=== PATIENT | female | born 1960 | race African-American/Black ===

== ENCOUNTER 2019-01-03 10:10 | Emergency (ER) | payer MEDICAID ==
[~2019-01-03] VITALS: Ht 162.6 cm; Wt 72.6 kg
[2019-01-03] MEDS ORDERED: METHADONE HCL10 MG ORAL (10:29)
[2019-01-03 10:41] VITALS: BP 149/80
--- NOTE | 2019-01-03 10:59 | Emergency Room Report ---
History of Present Illness General Chief Complaint: Upper Extremity Injury Source: Patient Present Illness HPI Patient presents with complaints of discomfort to the lateral part of the right hand reports that last week while she was changing the bed as she would change the sheets and making a motion of spreading the bedsheet as she moves her right hand upward she hit something on the right side of her hand She has had some ongoing swelling and discomfort with touch and as it persisted presents to the ER denies any wrist pain denies any elbow pain the discomfort is 3 out of 10 worse with touch or movement Allergies: Coded Allergies: No Known Allergies (Unverified , 01/03/19) Patient History Past Medical History: see triage record Last Menstrual Period: menopause Reviewed Nursing Documentation: PMH: Agreed; PSxH: Agreed Nursing Documentation-PMH Past Medical History: No Stated History Review of Systems All Other Systems: negative except mentioned in HPI Physical Exam Vital Signs Date Time Temp Pulse Resp B/P (MAP) Pulse Ox O2 Delivery O2 Flow Rate FiO2 01/03/19 10:27 98.1 76 19 149/80 (103) 99 Room Air Sp02 EP Interpretation: reviewed, normal General Appearance: well appearing, no apparent distress Head: normocephalic, atraumatic Eyes: bilateral eye PERRL, bilateral eye EOMI ENT: hearing grossly normal Neck: supple Respiratory: no respiratory distress, no retraction, no accessory muscle use Musculoskeletal: swelling - And mild ecchymosis to the lateral aspect of the right hand, digits are otherwise fully mobile wrist is nontender Neurologic: alert, oriented Skin: other - As above Lymphatic: no adenopathy Procedures Splinting Splinting : Consent: Verbal Location: Right hand Pre-Made Type: Splint: volar Pre-Proc Neuro Vasc Exam: normal Post-Proc Neuro Vasc Exam: normal Patient Tolerated: Well Complications: None Medical Decision Making Diagnostic Impression: Primary Impression: Hand fracture, right ER Course Given the history and presentation imaging studies are initiated there is evidence of fifth metacarpal fracture This did happen about 7 days ago nevertheless patient has splint applied is provided with outpatient follow-up and Will return with any changes or concerns Other X-Ray Diagnostic Results Other X-Ray Diagnostic Results : X-Ray ordered: right hand # of Views/Limited Vs Complete: 3 View Indication: Pain EP Interpretation: Yes Interpretation: no soft tissue swelling, other - Fifth metacarpal fracture mild angulation Impression: Other - Acute fracture as above Electronically Signed by: Cuong Draper DO Last Vital Signs Date Time Temp Pulse Resp B/P (MAP) Pulse Ox O2 Delivery O2 Flow Rate FiO2 01/03/19 10:41 98.1 72 19 149/80 99 Room Air Status: improved Disposition: HOME, SELF-CARE Condition: Improved Scripts Ibuprofen* (MOTRIN*) 600 Mg Tablet 600 MG ORAL Q8H PRN for For Pain, #20 TAB 0 Refills Prov: Cuong Draper DO 01/03/19 Referrals: NOT CHOSEN IPA/MD,REFERRING (PCP) Additional Instructions: Patient is provided with the discharge instructions notified to follow up with primary doctor in the next 2-3 days otherwise return to the er with any worsening symptoms. Please note that this report is being documented using [employer] technology. This can lead to erroneous entry secondary to incorrect interpretation by the dictating instrument. Cuong Draper DO Jan 03, 2019 10:59
[2019-01-03] MEDS ORDERED: IBUPROFEN600 MG ORAL (12:18)
[2019-01-03 12:50] VITALS: BP 149/80
--- NOTE | 2019-01-03 13:23 | Diagnostic Imaging Report ---
Indication: Trauma, pain Technique: 3 views right hand Comparison: none Findings: There is a very slightly angulated slightly impacted fracture of the neck of the fifth metacarpal. The bones are osteoporotic chronic. No other acute fractures. No dislocations. There is degenerative narrowing of the second through fifth proximal and distal interphalangeal joints. There is hardware seen reducing old healed distal ulnar fracture, and bone bridging the distal radius and the ulna. Impression: Positive for fifth metacarpal fracture Other findings as noted This agrees with the preliminary interpretation reported by the emergency room physician in the electronic medical record
== END 2019-01-03 12:51 | disposition home or self-care (01) ==
LOC: EMR 10:48
DX: S62.306A Unspecified fracture of fifth metacarpal bone, right hand, initial encounter for closed fracture (principal); W22.8XXA Striking against or struck by other objects, initial encounter; Y92.9 Unspecified place or not applicable
CPT/HCPCS: 29125; 73130; Z7502; 99283

== ENCOUNTER 2019-08-11 12:34 | Inpatient (IN) | payer MEDICAID ==
[~2019-08-11] VITALS: Ht 162.6 cm; Wt 74.8 kg
[~2019-08-11 12:34] MED LIST: IBUPROFEN600 MG ORAL; METHADONE HCL10 MG ORAL
--- NOTE | 2019-08-11 12:52 | Emergency Room Report ---
History of Present Illness General Chief Complaint: Chest pain Source: Patient Present Illness HPI Disclaimer: Please note that this report is being documented using [employer] technology. This can lead to erroneous entry secondary to incorrect interpretation by the dictating instrument. HPI: 59-year-old female presenting for chest pain. Patient states she developed sudden onset of right sided cramping tightness over the right breast and sternum that somewhat radiates down the right arm. Onset was 45 minutes ago while the patient was at rest. Denies prior episodes of similar chest pain. Denies prior trauma or injury. She is a former smoker and had quit for several years however last night bought a pack of cigarettes and was smoking last night and today causing her to cough a little. No prior cough, fever, sore throat, URI symptoms. She denies diaphoresis, palpitations, pain in the neck or back. Prior history of hypercholesterolemia however no longer taking medications as she states her triglyceride levels normalized. Did not take any medication prior to arrival. PMH: Asthma, bronchitis PSH: Reviewed Allergies: Denied Social Hx: Former smoker, recent use Allergies: Coded Allergies: No Known Allergies (Unverified , 01/03/19) Review of Systems All Other Systems: negative except mentioned in HPI Physical Exam General: Awake and alert, no acute distress HEENT: NC/AT. EOMI. Chest wall: Reproducible tenderness over the right chest wall and sternum. No crepitus or deformity Cardiovascular: RRR. S1 and S2 normal. No murmur appreciated Resp: Normal work of breathing. No cough, wheezing or crackles appreciated Abdomen: Abdomen is soft, nondistended. Nontender Skin: Intact. No abrasions, laceration or rash over the exposed skin MSK: Normal tone and bulk. Moving all extremities. No obvious deformity. Neuro: Awake and alert. Mentating appropriately. Medical Decision Making ER Course This is a 59-year-old female presenting with sudden onset chest pain 45 minutes ago. Differential includes was not limited to ACS, angina, NH, arrhythmia, bronchospasm, esophageal spasm, asthma exacerbation, pneumonia, musculoskeletal chest pain, GERD, dissection. EKG on arrival shows sinus rhythm with nonspecific T wave changes but no ST segment elevation or depression. Labs thus far within normal limits including the first troponin. The patient is continuing persistent chest pain that is now radiating to her back. Will clinically have low suspicion for dissection will obtain a CTA of the chest. This study will be signed out to the oncoming physician. Will plan for admission for chest pain. Laboratory Tests Test 08/11/19 12:50 08/11/19 19:50 08/12/19 06:02 08/13/19 05:10 White Blood Count 5.2 K/UL (4.8-10.8) 5.2 K/UL (4.8-10.8) Red Blood Count 4.20 M/UL (4.20-5.40) 3.77 M/UL (4.20-5.40) L Hemoglobin 12.4 G/DL (12.0-16.0) 11.1 G/DL (12.0-16.0) L Hematocrit 38.8 % (37.0-47.0) 34.7 % (37.0-47.0) L Mean Corpuscular Volume 92 FL (80-99) 92 FL (80-99) Mean Corpuscular Hemoglobin 29.6 PG (27.0-31.0) 29.5 PG (27.0-31.0) Mean Corpuscular Hemoglobin Concent 32.0 G/DL (32.0-36.0) 32.0 G/DL (32.0-36.0) Red Cell Distribution Width 14.2 % (11.6-14.8) 14.3 % (11.6-14.8) Platelet Count 224 K/UL (150-450) 191 K/UL (150-450) Mean Platelet Volume 7.2 FL (6.5-10.1) 7.2 FL (6.5-10.1) Neutrophils (%) (Auto) 34.4 % (45.0-75.0) L 36.9 % (45.0-75.0) L Lymphocytes (%) (Auto) 44.9 % (20.0-45.0) 43.5 % (20.0-45.0) Monocytes (%) (Auto) 11.1 % (1.0-10.0) H 12.3 % (1.0-10.0) H Eosinophils (%) (Auto) 7.7 % (0.0-3.0) H 5.8 % (0.0-3.0) H Basophils (%) (Auto) 2.0 % (0.0-2.0) 1.5 % (0.0-2.0) Prothrombin Time 10.4 SEC (9.30-11.50) Prothrombin Time INR 0.9 (0.9-1.1) Activated Partial Thromboplast Time 28 SEC (23-33) Sodium Level 146 MMOL/L (136-145) H 133 MMOL/L (136-145) #L Pending Potassium Level 3.8 MMOL/L (3.5-5.1) 3.5 MMOL/L (3.5-5.1) Pending Chloride Level 108 MMOL/L (98-107) H 107 MMOL/L (98-107) Pending Carbon Dioxide Level 28 MMOL/L (21-32) 26 MMOL/L (21-32) Pending Anion Gap 10 mmol/L (5-15) 0 mmol/L (5-15) L Blood Urea Nitrogen 15 mg/dL (7-18) 17 mg/dL (7-18) Pending Creatinine 0.9 MG/DL (0.55-1.30) 1.0 MG/DL (0.55-1.30) Pending Estimated Glomerular Filtration Rate > 60 mL/min (>60) > 60 mL/min (>60) Pending Glucose Level 62 MG/DL (74-106) L 107 MG/DL (74-106) H Pending Calcium Level 8.7 MG/DL (8.5-10.1) 8.3 MG/DL (8.5-10.1) L Pending Total Bilirubin 0.3 MG/DL (0.2-1.0) 0.2 MG/DL (0.2-1.0) Aspartate Amino Transferase (AST) 23 U/L (15-37) 23 U/L (15-37) Alanine Aminotransferase (ALT) 25 U/L (12-78) 22 U/L (12-78) Alkaline Phosphatase 74 U/L (46-116) 72 U/L (46-116) Troponin I 0.000 ng/mL (0.000-0.056) 0.000 ng/mL (0.000-0.056) 0.000 ng/mL (0.000-0.056) Pending Pro-B-Type Natriuretic Peptide 85 pg/mL (0-125) 72 pg/mL (0-125) Total Protein 7.6 G/DL (6.4-8.2) 6.9 G/DL (6.4-8.2) Albumin 4.0 G/DL (3.4-5.0) 3.9 G/DL (3.4-5.0) Globulin 3.6 g/dL Albumin/Globulin Ratio 1.1 (1.0-2.7) Direct Bilirubin < 0.1 MG/DL (0.0-0.3) Total Creatine Kinase 268 U/L (26-308) Hemoglobin A1c 6.0 % (4.3-6.0) Magnesium Level 2.0 MG/DL (1.8-2.4) Pending Triglycerides Level 255 MG/DL (30-150) H Cholesterol Level 229 MG/DL (< 200) H LDL Cholesterol 123 mg/dL (<100) H HDL Cholesterol 47 MG/DL (40-60) Cholesterol/HDL Ratio 4.9 (3.3-4.4) H Thyroid Stimulating Hormone (TSH) 1.179 uiU/mL (0.358-3.740) Phosphorus Level Pending EKG Diagnostic Results EKG Time: 12:48 Rate: normal Rhythm: NSR ST Segments: no acute changes Other Impression Sinus rhythm, normal axis, normal intervals, nonspecific ST changes. ASA given to the pt in ED: Yes Rhythm Strip Diag. Results Rhythm Strip Time: 12:48 EP Interpretation: yes Rate: 78 Rhythm: NSR, no PVC's, no ectopy Chest X-Ray Diagnostic Results Chest X-Ray Diagnostic Results : Chest X-Ray Ordered: Yes # of Views/Limited/Complete: 1 View Indication: Chest Pain EP Interpretation: Yes Interpretation: no consolidation, no effusion, no pneumothorax Impression: No acute disease Electronically Signed by: Electronically signed by Dr. Raffaele Lundberg CT/MRI/US Diagnostic Results CT/MRI/US Diagnostic Results : Impression CTA Impression: No evidence of acute pulmonary embolus or other acute thoracic vascular pathology Borderline cardiomegaly Nonspecific focal subpleural groundglass opacity in left inferior lingula, probably an area of atelectasis. Dictated By: Slava Stewart MD Electronically Signed By: Slava Stewart MD Signed Date/Time 08/11/19 9730 Disposition: ADMITTED INPATIENT Condition: Stable Raffaele Lundberg MD Aug 11, 2019 12:52
--- NOTE | 2019-08-11 12:59 | NUR ---
ED Nurse Note: Patient walked in from home complaining of right sided chest pain 10/10 started x1 hr ago. Patient aox4, states she smoked cigarette before the pain started. Denies injury. Patient is on room air, saturating 98%. S
[2019-08-11] MEDS ORDERED: Aspirin Baby 81mg ORAL ONE (13:00)
--- NOTE | 2019-08-11 13:01 | NUR ---
ED Nurse Note: Patient states she has history of bronchitis. Placed patient on hospital gown and cont. desk monitor. IV established on left AC 20g, blood collected and sent to lab. ERMD was at bedside, assessed patient. EKG done.
[2019-08-11 13:03] VITALS: BP 122/97
--- NOTE | 2019-08-11 13:07 | NUR ---
ED Nurse Note: xray at bedside
--- NOTE | 2019-08-11 13:08 | NUR ---
ED Nurse Note: Patient denies n/v/diarrhea/fever/chills, no SOB at this time. Safety precautions in place, bed is locked and side rails up x2. All needs attended to, instructed patient to call for assistance, verbalized understanding.
[2019-08-11 13:28] LABS: EOSINOPHILS % (AUTO) 7.7 % (0.0-3.0); HEMATOCRIT 38.8 % (37.0-47.0); HEMOGLOBIN 12.4 G/DL (12.0-16.0); LYMPHOCYTES % (AUTO) 44.9 % (20.0-45.0); MEAN CORPUSCULAR VOLUME 92 FL (80-99); MONOCYTES % (AUTO) 11.1 % (1.0-10.0); NEUTROPHILS % (AUTO) 34.4 % (45.0-75.0); PLATELET COUNT 224 K/UL (150-450); RED CELL DISTRIBUTION WIDTH 14.2 % (11.6-14.8); WHITE BLOOD COUNT 5.2 K/UL (4.8-10.8)
[2019-08-11 13:40] LABS: ANION GAP 10 mmol/L (5-15); BLOOD UREA NITROGEN 15 mg/dL (7-18); CALCIUM 8.7 MG/DL (8.5-10.1); CARBON DIOXIDE 28 MMOL/L (21-32); CHLORIDE 108 MMOL/L (98-107); CREATININE 0.9 MG/DL (0.55-1.30); POTASSIUM 3.8 MMOL/L (3.5-5.1); SODIUM 146 MMOL/L (136-145)
[2019-08-11 13:49] LABS: INR 0.9 (0.9-1.1)
[2019-08-11 13:52] LABS: ALANINE AMINOTRANSFERASE 25 U/L (12-78); ALBUMIN/GLOBULIN RATIO 1.1 (1.0-2.7); ALKALINE PHOSPHATASE 74 U/L (46-116); ASPARTATE AMINO TRANSFERASE 23 U/L (15-37); BILIRUBIN,TOTAL 0.3 MG/DL (0.2-1.0)
[2019-08-11 13:57] VITALS: BP 118/78
[2019-08-11] MEDS ORDERED: Omnipaque 350 100ml vial INJ PRN (14:00)
[2019-08-11] MEDS ORDERED: Ketorolac 30mg Inj IV ONE (14:00)
--- NOTE | 2019-08-11 14:14 | NUR ---
ED Nurse Note: Patient went down to CT via gurney.
--- NOTE | 2019-08-11 14:22 | Diagnostic Imaging Report ---
Indication: Chest pain Technique: One view of the chest Comparison: none Findings: Lungs and pleural spaces are clear. Heart size is normal. Impression: No acute process
--- NOTE | 2019-08-11 14:27 | NUR ---
ED Nurse Note: Patient back from CT via gurney, placed back on the monitor, no distress at this time.
[2019-08-11 14:48] VITALS: BP 133/83
--- NOTE | 2019-08-11 14:48 | NUR ---
ED Nurse Note: Patient is observed in gurney, eyes closed, appears to be sleepin. No distress noted at this time. Safety precautions remains in place, will continue to monitor.
--- NOTE | 2019-08-11 15:24 | Diagnostic Imaging Report ---
ndication: Reason For Exam: CP Technique: IV administration nonionic contrast. Spiral acquisitions obtained from the lung bases to the lung apices. Multiplanar and 3-D reconstructions were generated. Total dose length product 242 mGycm. CTDIvol(s) one, 31, 6 mGy. Dose reduction achieved using automated exposure control Comparison: none Findings: No intraluminal filling defects or other findings to suggest acute pulmonary embolus are visualized. Normal caliber pulmonary arteries. There is mild cardiomegaly but no evidence of isolated right ventricular dilatation. No acute infiltrates or congestion demonstrated. No masses or nodules. Very focal subpleural groundglass opacity is seen in the left inferior lingula. There is a trace right pleural effusion. No pericardial effusion. Unremarkable esophagus. No mediastinal or hilar mass or adenopathy. No axillary or chest wall mass or adenopathy. The thyroid is unremarkable. The included upper abdominal anatomy is unremarkable. Impression: No evidence of acute pulmonary embolus or other acute thoracic vascular pathology Borderline cardiomegaly Nonspecific focal subpleural groundglass opacity in left inferior lingula, probably an area of atelectasis. The CT scanner at [facility] is accredited by the [employer] [place] and the scans are performed using protocols designed to limit radiation exposure to as low as reasonably achievable to attain images of sufficient resolution adequate for diagnostic evaluation.
--- NOTE | 2019-08-11 15:39 | NUR ---
ED Nurse Note: Called and spoke with LENORA Marquez, was instructed to call back in 15 minutes. Charge nurse notified.
[2019-08-11 15:53] VITALS: BP 110/62
--- NOTE | 2019-08-11 15:59 | NUR ---
ED Nurse Note: Second attempt to give report, per earth science technician Akira receiving nurse is still busy at this time.
[2019-08-11] MEDS ORDERED: Metoclopramide 10mg/2ml Inj IVP PRN (16:00)
[2019-08-11] MEDS ORDERED: Albuterol/Ipratropium 3ml neb HHN SCH (16:00)
[2019-08-11] MEDS ORDERED: Albuterol/Ipratropium 3ml neb HHN PRN (16:00)
[2019-08-11] MEDS ORDERED: Atorvastatin 20mg tab ORAL SCH (16:00)
[2019-08-11] MEDS ORDERED: Milk of Magnesia 30ml Ud ORAL PRN (16:00)
[2019-08-11] MEDS ORDERED: Nitroglycerin Subl 0.4mg tab SL PRN (16:00)
--- NOTE | 2019-08-11 16:06 | NUR ---
ED Nurse Note: Patient ambulated to restroom with steady gait.
--- NOTE | 2019-08-11 16:14 | NUR ---
ED Nurse Note: Report given to LENORA Marquez via telephone.
--- NOTE | 2019-08-11 16:17 | NUR ---
TRANSFER TO FLOOR: Patient transferred to Telemetry room 214 accompanied by LIVIA jacques and LENORA Ho ACLS protocol as ordered, per Dr Kingston's order. Report given to LENORA Marquez via telephone. Belongings remained with patient.
[2019-08-11 16:30] VITALS: BP 136/87
--- NOTE | 2019-08-11 16:36 | Consultation ---
History of Present Illness General Chief Complaint: Chest Pain Present Illness Allergies: Coded Allergies: No Known Allergies (Unverified , 01/03/19) Medication History Scheduled Methadone Hcl* (Methadone*), 40 MG ORAL DAILY, (Reported) Scheduled PRN Ibuprofen (Motrin), 600 MG ORAL Q8H PRN for For Pain Patient History Healthcare decision maker Resuscitation status Advanced Directive on File Physical Exam Last 24 Hour Vital Signs Date Time Temp Pulse Resp B/P (MAP) Pulse Ox O2 Delivery O2 Flow Rate FiO2 08/11/19 16:18 98.1 72 18 128/71 95 Room Air 08/11/19 15:53 71 16 110/62 94 Room Air 08/11/19 14:48 71 16 133/83 95 Room Air 08/11/19 13:57 97.3 77 18 118/78 99 Room Air 08/11/19 13:07 80 18 08/11/19 13:03 97.3 80 16 122/97 99 Room Air 08/11/19 12:40 97.3 80 16 131/78 (95) 99 Room Air Laboratory Tests Test 08/11/19 12:50 White Blood Count 5.2 K/UL (4.8-10.8) Red Blood Count 4.20 M/UL (4.20-5.40) Hemoglobin 12.4 G/DL (12.0-16.0) Hematocrit 38.8 % (37.0-47.0) Mean Corpuscular Volume 92 FL (80-99) Mean Corpuscular Hemoglobin 29.6 PG (27.0-31.0) Mean Corpuscular Hemoglobin Concent 32.0 G/DL (32.0-36.0) Red Cell Distribution Width 14.2 % (11.6-14.8) Platelet Count 224 K/UL (150-450) Mean Platelet Volume 7.2 FL (6.5-10.1) Neutrophils (%) (Auto) 34.4 % (45.0-75.0) L Lymphocytes (%) (Auto) 44.9 % (20.0-45.0) Monocytes (%) (Auto) 11.1 % (1.0-10.0) H Eosinophils (%) (Auto) 7.7 % (0.0-3.0) H Basophils (%) (Auto) 2.0 % (0.0-2.0) Prothrombin Time 10.4 SEC (9.30-11.50) Prothromb Time International Ratio 0.9 (0.9-1.1) Activated Partial Thromboplast Time 28 SEC (23-33) Sodium Level 146 MMOL/L (136-145) H Potassium Level 3.8 MMOL/L (3.5-5.1) Chloride Level 108 MMOL/L (98-107) H Carbon Dioxide Level 28 MMOL/L (21-32) Anion Gap 10 mmol/L (5-15) Blood Urea Nitrogen 15 mg/dL (7-18) Creatinine 0.9 MG/DL (0.55-1.30) Estimat Glomerular Filtration Rate > 60 mL/min (>60) Glucose Level 62 MG/DL (74-106) L Calcium Level 8.7 MG/DL (8.5-10.1) Total Bilirubin 0.3 MG/DL (0.2-1.0) Aspartate Amino Transf (AST/SGOT) 23 U/L (15-37) Alanine Aminotransferase (ALT/SGPT) 25 U/L (12-78) Alkaline Phosphatase 74 U/L (46-116) Troponin I 0.000 ng/mL (0.000-0.056) Pro-B-Type Natriuretic Peptide 85 pg/mL (0-125) Total Protein 7.6 G/DL (6.4-8.2) Albumin 4.0 G/DL (3.4-5.0) Globulin 3.6 g/dL Albumin/Globulin Ratio 1.1 (1.0-2.7) Height (Feet): 5 Height (Inches): 4.00 Weight (Pounds): 160 Medications Current Medications Medications (Trade) Dose Ordered Sig/Alfred Route PRN Reason Start Time Stop Time Status Last Admin Dose Admin Acetaminophen (Tylenol) 650 mg Q4H PRN ORAL Mild Pain (Pain Scale 1-3) 08/11/19 16:00 09/10/19 15:59 Acetaminophen (Tylenol) 650 mg Q4H PRN ORAL Temp >100.5 08/11/19 16:00 09/10/19 15:59 Albuterol/ Ipratropium (Albuterol/ Ipratropium) 3 ml Q6H HHN 08/11/19 16:00 08/16/19 15:59 Albuterol/ Ipratropium (Albuterol/ Ipratropium) 3 ml Q6H PRN HHN Shortness of Breath 08/11/19 16:00 08/16/19 15:59 Aspirin (Ecotrin) 325 mg DAILY ORAL 08/12/19 09:00 09/26/19 08:59 Atorvastatin Calcium (Lipitor) 40 mg ONCE ORAL 08/11/19 16:00 08/11/19 18:00 Dextrose (Dextrose 50%) 25 ml Q30M PRN IV Hypoglycemia 08/11/19 16:00 11/09/19 15:59 Dextrose (Dextrose 50%) 50 ml Q30M PRN IV Hypoglycemia 08/11/19 16:00 11/09/19 15:59 Dextrose/Sodium Chloride 1,000 ml @ 100 mls/hr Q10H IV 08/11/19 16:47 09/10/19 16:46 Docusate Sodium (Colace) 100 mg EVERY 12 HOURS ORAL 08/11/19 21:00 09/10/19 20:59 Famotidine (Pepcid) 40 mg DAILY ORAL 08/12/19 09:00 11/10/19 08:59 Iohexol (Omnipaque 350 100ml) 100 ml NOW PRN INJ Radiology Procedure 08/11/19 14:00 08/13/19 13:52 Lorazepam (Ativan 2mg/ml 1ml) 0.5 mg Q4H PRN IV For Anxiety 08/11/19 16:00 08/18/19 15:59 Magnesium Hydroxide (Mom) 30 ml HSPRN PRN ORAL Constipation 08/11/19 16:00 09/10/19 15:59 Metoclopramide HCl (Reglan) 10 mg Q6H PRN IVP Nausea & Vomiting 08/11/19 16:00 09/10/19 15:59 Nitroglycerin (Ntg) 0.4 mg Q5M PRN SL Prn Chest Pain 08/11/19 16:00 09/10/19 15:59 Ondansetron HCl (Zofran) 4 mg Q6H PRN IVP Nausea & Vomiting 08/11/19 16:00 09/10/19 15:59 Prochlorperazine (Compazine) 10 mg Q6H PRN IVP Nausea & Vomiting 08/11/19 16:00 09/10/19 15:59 Marck Black MD Aug 11, 2019 16:36
[2019-08-11] MEDS: D5 1/2NS 1,000 ML IV SCH (17:15)
--- NOTE | 2019-08-11 18:44 | NUR ---
NURSE NOTES: Received pt from EGG SEPARATOR Mariam Baez at 1630, all admission assessments and instructions done and pt verbally confirmed to understand all. pt is alert and orient, V/S done, pt is in RA, no SOB or acute respiratory distress noted. pt has intact iv access LAC 20G is running well. pt is on continues heart monitoring, Dr Black visited pt and ordered hep for DVT prophylaxis. pt asked for methadone 100mg QD, Dr Dimas is aware, she will F/U. all needs attended, bed is locked and is in the lowest position, call light within easy reach. will continue to monitor.
--- NOTE | 2019-08-11 19:14 | NUR ---
HAND-OFF: Report given to LENORA FONTANEZ. Pt is awake and stable, Endorsed plan of care. Endorsed to F/U for stress test.
--- NOTE | 2019-08-11 19:50 | NUR ---
NURSE NOTES: Received patient report from LENORA Marquez. Patient shows no signs of distress. Patient is still complaining of pain on right side of chest and arm, but says its tolerable. Patient is AO x 4. IV site is patent and running D5 1/2 NS at 100cc/hr. Bed is in the lowest position, side rails up x 3, call light within reach. Will continue to monitor.
[2019-08-11 20:00] VITALS: BP 125/82
[2019-08-11 20:19] LABS: ALANINE AMINOTRANSFERASE 22 U/L (12-78); ALBUMIN 3.9 G/DL (3.4-5.0); ALKALINE PHOSPHATASE 72 U/L (46-116); ASPARTATE AMINO TRANSFERASE 23 U/L (15-37); BILIRUBIN,DIRECT < 0.1 MG/DL (0.0-0.3); BILIRUBIN,TOTAL 0.2 MG/DL (0.2-1.0); CREATINE KINASE 268 U/L (26-308)
[2019-08-11] MEDS: Docusate 100mg cap ORAL SCH (20:35)
[2019-08-11] MEDS: LORazepam Inj 2mg/ml 1ml IV PRN (20:35)
[2019-08-11] MEDS: Heparin 5000 units/ml inj SUBQ SCH (20:37)
[2019-08-11] MEDS: Albuterol/Ipratropium 3ml neb HHN SCH (20:44)
--- NOTE | 2019-08-11 20:44 | History and Physical ---
History of Present Illness General Date patient seen: Aug 11, 2019 Time patient seen: 19:30 Reason for Hospitalization: Chest Pain Present Illness HPI "HPI: 59-year-old female presenting for chest pain. Patient states she developed sudden onset of right sided cramping tightness over the right breast and sternum that somewhat radiates down the right arm. Onset was 45 minutes ago while the patient was at rest. Denies prior episodes of similar chest pain. Denies prior trauma or injury. She is a former smoker and had quit for several years however last night bought a pack of cigarettes and was smoking last night and today causing her to cough a little. No prior cough, fever, sore throat, URI symptoms. She denies diaphoresis, palpitations, pain in the neck or back. Prior history of hypercholesterolemia however no longer taking medications as she states her triglyceride levels normalized. Did not take any medication prior to arrival." Confirmed above history with patient, she appears to be an untrustworthy/ poor historian; i suspect secondary gain. Patient states she takes methadone. She is able to show me a white bottle with a label on it w Dr. Vincent Larsen's name on is and phone number . I am unable to pull up a history on CURES for this patient as she likely gets meds filled from a methadone clinic. I spoke to pharmacy who will follow up by calling the methadone clinic in the am to verify. Allergies: Coded Allergies: No Known Allergies (Unverified , 01/03/19) COVID-19 Screening Contact w/high risk pt: No Recent Travel to affected area: No Experienced COVID-19 symptoms?: No Medication History Scheduled Methadone Hcl* (Methadone*), 40 MG ORAL DAILY, (Reported) Scheduled PRN Ibuprofen (Motrin), 600 MG ORAL Q8H PRN for For Pain Patient History Healthcare decision maker Resuscitation status Advanced Directive on File Review of Systems All Other Systems: negative except mentioned in HPI Physical Exam Last 24 Hour Vital Signs Date Time Temp Pulse Resp B/P (MAP) Pulse Ox O2 Delivery O2 Flow Rate FiO2 08/11/19 17:46 82 18 99 Room Air 21 80 18 96 08/11/19 16:45 Room Air 08/11/19 16:37 73 08/11/19 16:30 97.9 74 18 136/87 (103) 95 08/11/19 16:18 98.1 72 18 128/71 95 Room Air 08/11/19 15:53 71 16 110/62 94 Room Air 08/11/19 14:48 71 16 133/83 95 Room Air 08/11/19 13:57 97.3 77 18 118/78 99 Room Air 08/11/19 13:07 80 18 08/11/19 13:03 97.3 80 16 122/97 99 Room Air 08/11/19 12:40 97.3 80 16 131/78 (95) 99 Room Air Laboratory Tests Test 08/11/19 12:50 08/11/19 19:50 White Blood Count 5.2 K/UL (4.8-10.8) Red Blood Count 4.20 M/UL (4.20-5.40) Hemoglobin 12.4 G/DL (12.0-16.0) Hematocrit 38.8 % (37.0-47.0) Mean Corpuscular Volume 92 FL (80-99) Mean Corpuscular Hemoglobin 29.6 PG (27.0-31.0) Mean Corpuscular Hemoglobin Concent 32.0 G/DL (32.0-36.0) Red Cell Distribution Width 14.2 % (11.6-14.8) Platelet Count 224 K/UL (150-450) Mean Platelet Volume 7.2 FL (6.5-10.1) Neutrophils (%) (Auto) 34.4 % (45.0-75.0) L Lymphocytes (%) (Auto) 44.9 % (20.0-45.0) Monocytes (%) (Auto) 11.1 % (1.0-10.0) H Eosinophils (%) (Auto) 7.7 % (0.0-3.0) H Basophils (%) (Auto) 2.0 % (0.0-2.0) Prothrombin Time 10.4 SEC (9.30-11.50) Prothromb Time International Ratio 0.9 (0.9-1.1) Activated Partial Thromboplast Time 28 SEC (23-33) Sodium Level 146 MMOL/L (136-145) H Potassium Level 3.8 MMOL/L (3.5-5.1) Chloride Level 108 MMOL/L (98-107) H Carbon Dioxide Level 28 MMOL/L (21-32) Anion Gap 10 mmol/L (5-15) Blood Urea Nitrogen 15 mg/dL (7-18) Creatinine 0.9 MG/DL (0.55-1.30) Estimat Glomerular Filtration Rate > 60 mL/min (>60) Glucose Level 62 MG/DL (74-106) L Calcium Level 8.7 MG/DL (8.5-10.1) Total Bilirubin 0.3 MG/DL (0.2-1.0) 0.2 MG/DL (0.2-1.0) Aspartate Amino Transf (AST/SGOT) 23 U/L (15-37) 23 U/L (15-37) Alanine Aminotransferase (ALT/SGPT) 25 U/L (12-78) 22 U/L (12-78) Alkaline Phosphatase 74 U/L (46-116) 72 U/L (46-116) Troponin I 0.000 ng/mL (0.000-0.056) 0.000 ng/mL (0.000-0.056) Pro-B-Type Natriuretic Peptide 85 pg/mL (0-125) Total Protein 7.6 G/DL (6.4-8.2) 6.9 G/DL (6.4-8.2) Albumin 4.0 G/DL (3.4-5.0) 3.9 G/DL (3.4-5.0) Globulin 3.6 g/dL Albumin/Globulin Ratio 1.1 (1.0-2.7) Direct Bilirubin < 0.1 MG/DL (0.0-0.3) Total Creatine Kinase 268 U/L (26-308) Height (Feet): 5 Height (Inches): 4.00 Weight (Pounds): 160 Medications Current Medications Medications (Trade) Dose Ordered Sig/Alfred Route PRN Reason Start Time Stop Time Status Last Admin Dose Admin Acetaminophen (Tylenol) 650 mg Q4H PRN ORAL Mild Pain (Pain Scale 1-3) 08/11/19 16:00 09/10/19 15:59 Acetaminophen (Tylenol) 650 mg Q4H PRN ORAL Temp >100.5 08/11/19 16:00 09/10/19 15:59 Albuterol/ Ipratropium (Albuterol/ Ipratropium) 3 ml Q6H PRN HHN Shortness of Breath 08/11/19 16:00 08/16/19 15:59 08/11/19 17:46 Albuterol/ Ipratropium (Albuterol/ Ipratropium) 3 ml Q6HRT HHN 08/11/19 19:00 08/16/19 15:59 Aspirin (Ecotrin) 325 mg DAILY ORAL 08/12/19 09:00 09/26/19 08:59 Dextrose (Dextrose 50%) 25 ml Q30M PRN IV Hypoglycemia 08/11/19 16:00 11/09/19 15:59 Dextrose (Dextrose 50%) 50 ml Q30M PRN IV Hypoglycemia 08/11/19 16:00 11/09/19 15:59 Dextrose/Sodium Chloride 1,000 ml @ 100 mls/hr Q10H IV 08/11/19 16:47 09/10/19 16:46 08/11/19 17:15 Docusate Sodium (Colace) 100 mg EVERY 12 HOURS ORAL 08/11/19 21:00 09/10/19 20:59 Famotidine (Pepcid) 40 mg DAILY ORAL 08/12/19 09:00 11/10/19 08:59 Heparin Sodium (Porcine) (Heparin 5000 units/ml) 5,000 units EVERY 12 HOURS SUBQ 08/11/19 21:00 09/25/19 20:59 Iohexol (Omnipaque 350 100ml) 100 ml NOW PRN INJ Radiology Procedure 08/11/19 14:00 08/13/19 13:52 Lorazepam (Ativan 2mg/ml 1ml) 0.5 mg Q4H PRN IV For Anxiety 08/11/19 16:00 08/18/19 15:59 Magnesium Hydroxide (Mom) 30 ml HSPRN PRN ORAL Constipation 08/11/19 16:00 09/10/19 15:59 Metoclopramide HCl (Reglan) 10 mg Q6H PRN IVP Nausea & Vomiting 08/11/19 16:00 09/10/19 15:59 Nitroglycerin (Ntg) 0.4 mg Q5M PRN SL Prn Chest Pain 08/11/19 16:00 09/10/19 15:59 Ondansetron HCl (Zofran) 4 mg Q6H PRN IVP Nausea & Vomiting 08/11/19 16:00 09/10/19 15:59 Prochlorperazine (Compazine) 10 mg Q6H PRN IVP Nausea & Vomiting 08/11/19 16:00 09/10/19 15:59 Objective Narrative GENERAL: No acute distress, appears comfortable, alert HEENT: NCAT, non-icteric eyes, pupils PERRLA Neck: No cervical lymphadenopathy, trachea midline CV: Regular rate and rhythm, no murmurs rubs or gallops; chest palpated with no tenderness, shoulder and upper right extremity palpated where patient states that she has spasm with no tenderness or muscle spasm noted. RESP: Clear to auscultation bilaterally, no wheezes/rhonchi/crackles ABD: soft, non-distended, no TTP EXT: Normal muscle tone, +5/5 muscle strength NEURO: No obvious deficits, alert and oriented x3 Assessment/Plan Assessment/Plan: Marj Gonzalez is a 59-year-old -[place]ammarinese female with past medical history of COPD and asthma presenting for atypical chest pain. #Atypical chest pain -Admit to telemetry under Jolly -Troponins x3 (first 1-) -EKGs x3 (first 1 within normal limits) -CTA chest done in the ED is negative for PE -Appreciate cardiology consult, plan is for stress test tomorrow #Right flank pain, positional, possibly related to muscle spasm -Patient's complaints do not correlate to her exam, suspicious for malingering -Start Robaxin; patient states she has a bad reaction to Flexeril #Asthma #COPD -Continue home medications -Monitor SPO2, patient is currently on room air, with no symptoms of exacerbation -CT scan reviewed with very minimal ground-glass on right lower lobe noted -Respiratory treatments as needed #Methadone use? Patient states she takes methadone. She is able to show me a white bottle with a label on it w Dr. Vincent Larsen's name on is and phone number [phone]. I am unable to pull up a history on [facility] for this patient as she likely gets meds filled from a methadone clinic. I spoke to pharmacy who will follow up by calling the methadone clinic in the am to verify. -We will add as needed medication for agitation, and monitor for signs and symptoms of withdrawal until a.m. when pharmacy can verify medication -Cures search done, no report available -Consider pain management consult #DIS p.o. -Home with home health #CODE STATUS: Full code The time of my note may not reflect the time of my patient encounter. 75 minutes were spent on case, with more than 50% of time dedicated to care coordination and counseling ----- Date of Discussion: 08/11/2019 A [id number] discussion with the patient regarding the patient's advanced care planning took place during this hospitalization on the above date. The discussion included the explanation and discussion of advance directives and associated forms/documents, as well as the patient's current code status. We also discussed at length the patient's medical conditions (both acute and chronic), general prognosis, treatment options, and goals of care. The following summarizes the discussion: Advance Care Planning/Goals of Care: - Will attempt to fill out an AD and/or POLST with the patient prior to discharge, if not already completed - Continue current evaluation and management of any acute and chronic medical issues - Will continue to support the patient/family - Will continue to discuss both short- and long-term goals of care DPOA-HC/Surrogate Decision Maker: None currently appointed Code Status: Full Code Advanced Care Planning Forms/Documents Completed: Deferred until later encounter/visit I spent a total of 16 minutes was spent on this discussion, including counseling , answering questions, and completing, if any, pertinent advanced care planning forms/documents. Time of note may not reflect time of encounter. Gloria Dimas DO Aug 11, 2019 20:44
--- NOTE | 2019-08-11 20:50 | NUR ---
NURSE NOTES: Spoke to Desirae from Pharmacy. She called to verify what methadone clinic the patient was going to. Patient said it was the one on [address]. Desirae will bring over consent form for patient to fill out so they can verify the dose.
[2019-08-11] MEDS ORDERED: Methocarbamol 500mg tab ORAL PRN (21:00)
[2019-08-11] MEDS ORDERED: traMADol 50mg tab ORAL PRN (21:00)
[2019-08-11] MEDS ORDERED: HYDROcodone/Acetamin 5/325 tab ORAL PRN (21:00)
[2019-08-11] MEDS ORDERED: LORazepam Inj 2mg/ml 1ml IV PRN (21:00)
[2019-08-11] MEDS ORDERED: Hydromorphone 0.5mg/0.5ml inj IVP PRN (21:00)
--- NOTE | 2019-08-11 21:33 | NUR ---
NURSE NOTES: Called Dr. Black regarding patients treadmill stress test. On the check list there is a contraindication if the patient has asthma. She has asthma and is currently receiving breathing treatments. Left a voicemail for the Dr. Burrell. Awaiting callback.
[2019-08-12] VITALS: BP 124/82
[2019-08-12] MEDS: Albuterol/Ipratropium 3ml neb HHN SCH ×4 (01:00→19:50)
--- NOTE | 2019-08-12 01:41 | NUR ---
NURSE NOTES: Patient sleeping comfortably in bed. There are no signs of distress or pain at the time.
[2019-08-12] MEDS: D5 1/2NS 1,000 ML IV SCH (03:12)
[2019-08-12 04:00] VITALS: BP 129/78
[2019-08-12 06:43] LABS: BASOPHILS % (AUTO) 1.5 % (0.0-2.0); EOSINOPHILS % (AUTO) 5.8 % (0.0-3.0); HEMATOCRIT 34.7 % (37.0-47.0); HEMOGLOBIN 11.1 G/DL (12.0-16.0); LYMPHOCYTES % (AUTO) 43.5 % (20.0-45.0); MEAN CORPUSCULAR VOLUME 92 FL (80-99); MONOCYTES % (AUTO) 12.3 % (1.0-10.0); NEUTROPHILS % (AUTO) 36.9 % (45.0-75.0); PLATELET COUNT 191 K/UL (150-450); RED BLOOD COUNT 3.77 M/UL (4.20-5.40); RED CELL DISTRIBUTION WIDTH 14.3 % (11.6-14.8); WHITE BLOOD COUNT 5.2 K/UL (4.8-10.8)
--- NOTE | 2019-08-12 06:57 | General Progress Note ---
Assessment/Plan Assessment/Plan: Marj Gonzalez is a 59-year-old -Swazi female with past medical history of COPD and asthma presenting for atypical chest pain. #Atypical chest pain -cont medical management, telemetry obs -Troponins x3 (first 1-) -EKGs x3 (first 1 within normal limits) -CTA chest done in the ED is negative for PE -Appreciate cardiology consult, s/p stress test today, negative #Right flank pain, positional, possibly related to muscle spasm -Patient's complaints do not correlate to her exam, suspicious for malingering -cont Robaxin; patient states she has a bad reaction to Flexeril #Asthma #COPD #Wheezing -Continue home medications -Monitor SPO2, patient is currently on room air, with no symptoms of exacerbation -CT scan reviewed with very minimal ground-glass on right lower lobe noted -Respiratory treatments as needed and scheduled #Methadone use Patient states she takes methadone. She is able to show me a white bottle with a label on it w Dr. Vincent Larsen's name on is and phone number [phone]. I am unable to pull up a history on [facility] for this patient as she likely gets meds filled from a methadone clinic. I spoke to pharmacy who will follow up by calling the methadone clinic in the am to verify. -We will add as needed medication for agitation, and monitor for signs and symptoms of withdrawal until a.m. when pharmacy can verify medication -Cures search done, no report available -Consider pain management consult -pharmacy confirmed dose #Dispo -Home with home health #CODE STATUS: Full code The time of my note may not reflect the time of my patient encounter. 35 minutes were spent on case, with more than 50% of time dedicated to care coordination and counseling. D/w Dr. Black and RN. An additional 35 mins spent on chart review of H&P, progress notes, clinical education consultant notes, labs and radiographic imaging. Subjective Allergies: Coded Allergies: No Known Allergies (Unverified , 01/03/19) Subjective F/u for CP. No acute events overnight. Pt states CP occurs w/deep inspiration, w/associated wheezing this AM. Pt denies SOB, cough at this time. Objective Last 24 Hour Vital Signs Date Time Temp Pulse Resp B/P (MAP) Pulse Ox O2 Delivery O2 Flow Rate FiO2 08/12/19 04:00 78 08/12/19 04:00 97.2 64 18 129/78 (95) 96 08/12/19 01:03 80 16 100 Room Air 21 71 14 98 08/12/19 00:00 87 08/12/19 00:00 97.1 62 18 124/82 (96) 96 08/11/19 21:06 96.9 08/11/19 21:00 Room Air 08/11/19 20:52 65 14 100 Room Air 21 73 12 98 08/11/19 20:00 96.9 63 19 125/82 (96) 97 08/11/19 20:00 80 08/11/19 17:46 82 18 99 Room Air 21 80 18 96 08/11/19 16:45 Room Air 08/11/19 16:37 73 08/11/19 16:30 97.9 74 18 136/87 (103) 95 08/11/19 16:18 98.1 72 18 128/71 95 Room Air 08/11/19 15:53 71 16 110/62 94 Room Air 08/11/19 14:48 71 16 133/83 95 Room Air 08/11/19 13:57 97.3 77 18 118/78 99 Room Air 08/11/19 13:07 80 18 08/11/19 13:03 97.3 80 16 122/97 99 Room Air 08/11/19 12:40 97.3 80 16 131/78 (95) 99 Room Air Intake and Output 08/11/19 08/12/19 19:00 07:00 Intake Total 475 ml 700 ml Balance 475 ml 700 ml Intake Oral 300 ml IV Total 175 ml 700 ml # Voids 2 Laboratory Tests 08/11/19 12:50: White Blood Count 5.2, Red Blood Count 4.20, Hemoglobin 12.4, Hematocrit 38.8, Mean Corpuscular Volume 92, Mean Corpuscular Hemoglobin 29.6, Mean Corpuscular Hemoglobin Concent 32.0, Red Cell Distribution Width 14.2, Platelet Count 224, Mean Platelet Volume 7.2, Neutrophils (%) (Auto) 34.4L, Lymphocytes (%) (Auto) 44.9, Monocytes (%) (Auto) 11.1H, Eosinophils (%) (Auto) 7.7H, Basophils (%) ( Auto) 2.0, Prothrombin Time 10.4, Prothromb Time International Ratio 0.9, Activated Partial Thromboplast Time 28, Sodium Level 146H, Potassium Level 3.8, Chloride Level 108H, Carbon Dioxide Level 28, Anion Gap 10, Blood Urea Nitrogen 15, Creatinine 0.9, Estimat Glomerular Filtration Rate > 60, Glucose Level 62L, Calcium Level 8.7, Total Bilirubin 0.3, Aspartate Amino Transf (AST/SGOT) 23, Alanine Aminotransferase (ALT/SGPT) 25, Alkaline Phosphatase 74, Troponin I 0.000, Pro-B-Type Natriuretic Peptide 85, Total Protein 7.6, Albumin 4.0, Globulin 3.6, Albumin/Globulin Ratio 1.1 08/11/19 19:50: Total Bilirubin 0.2, Aspartate Amino Transf (AST/SGOT) 23, Alanine Aminotransferase (ALT/SGPT) 22, Alkaline Phosphatase 72, Troponin I 0.000, Total Protein 6.9, Albumin 3.9, Direct Bilirubin < 0.1, Total Creatine Kinase 268 08/12/19 06:02: White Blood Count [Pending], Red Blood Count [Pending], Hemoglobin [Pending], Hematocrit [Pending], Mean Corpuscular Volume [Pending], Mean Corpuscular Hemoglobin [Pending], Mean Corpuscular Hemoglobin Concent [Pending], Red Cell Distribution Width [Pending], Platelet Count [Pending], Mean Platelet Volume [ Pending], Neutrophils (%) (Auto) [Pending], Lymphocytes (%) (Auto) [Pending], Monocytes (%) (Auto) [Pending], Eosinophils (%) (Auto) [Pending], Basophils (%) (Auto) [Pending], Sodium Level [Pending], Potassium Level [Pending], Chloride Level [Pending], Carbon Dioxide Level [Pending], Blood Urea Nitrogen [Pending], Creatinine [Pending], Estimat Glomerular Filtration Rate [Pending], Glucose Level [Pending], Calcium Level [Pending], Troponin I [Pending], Pro-B-Type Natriuretic Peptide [Pending], Hemoglobin A1c [Pending], Magnesium Level [ Pending], Triglycerides Level [Pending], Cholesterol Level [Pending], LDL Cholesterol [Pending], HDL Cholesterol [Pending], Cholesterol/HDL Ratio [Pending ], Thyroid Stimulating Hormone (TSH) [Pending] Height (Feet): 5 Height (Inches): 4.00 Weight (Pounds): 160 Objective GENERAL: No acute distress, appears comfortable, alert HEENT: NCAT, non-icteric eyes, pupils PERRLA Neck: No cervical lymphadenopathy, trachea midline CV: Regular rate and rhythm, no murmurs rubs or gallops; chest palpated with no tenderness, shoulder and upper right extremity palpated where patient states that she has spasm with no tenderness or muscle spasm noted. RESP: wheezing heard in lung montgomery b/l, no accessory muscle usage or conversational dyspnea ABD: soft, non-distended, no TTP EXT: Normal muscle tone, +5/5 muscle strength NEURO: No obvious deficits, alert and oriented x3 Alice Casas M.D. Aug 12, 2019 06:57
[2019-08-12 07:12] LABS: ANION GAP 0 mmol/L (5-15); BLOOD UREA NITROGEN 17 mg/dL (7-18); CALCIUM 8.3 MG/DL (8.5-10.1); CARBON DIOXIDE 26 MMOL/L (21-32); CHLORIDE 107 MMOL/L (98-107); CHOLESTEROL 229 MG/DL (< 200); HDL CHOLESTEROL 47 MG/DL (40-60); POTASSIUM 3.5 MMOL/L (3.5-5.1); SODIUM 133 MMOL/L (136-145); TRIGLYCERIDES 255 MG/DL (30-150)
--- NOTE | 2019-08-12 07:25 | NUR ---
HAND-OFF: Report given to LENORA [place]. Patient shows no signs of distress or pain. Endorsed plan of care.
--- NOTE | 2019-08-12 07:44 | NUR ---
NURSE NOTES: Received report from LENORA Downey. Pt awake, A/O x4, denies any pain or discomfort. Breathing even and unlabored in RA, no s/sx of acute distress. IV site on L AC patent and asymptomatic, running IVF as ordered. Pt NPO and scheduled for stress test today. Bed on lowest position, call light within reach. Will continue plan of care.
[2019-08-12 08:00] VITALS: BP 130/77
[2019-08-12] MEDS: Heparin 5000 units/ml inj SUBQ SCH ×2 (08:53→20:58)
[2019-08-12] MEDS: Aspirin EC 325mg tab ORAL SCH (08:55)
--- NOTE | 2019-08-12 08:55 | NUR ---
PT EVALUATION NOTE Patient seen for initial evaluation and treatment initiated. Patient presents with decreased activity tolerance and impaired mobility. Patient able to perform sit to stand with supervision, verbal cues provided to increase ease of mobility. Patient able to ambulate 100 ft with supervision. Gait pace slightly slowed, reciprocal gait pattern. After ambulation patient c/o fatigue and some SOB. Patient instructed in pursed lip breathing techniques. Patient will benefit from skilled inpatient PT intervention to address activity tolerance and techniques for pacing and proper breathing so that patient can return to prior level of function without c/o SOB or fatigue. Patient will also benefit from stair training as patient lives in a 2 story house. Anticipate discharge home once medically cleared by MD. No DME needs identified at this time. Addendum: 08/12/19 at 1212 by KEDAR OCHOA PT Amended: Links added.
[2019-08-12] MEDS: Docusate 100mg cap ORAL SCH ×2 (08:56→20:59)
[2019-08-12 12:00] VITALS: BP 139/83
--- NOTE | 2019-08-12 12:34 | NUR ---
CASE MANAGEMENT:REVIEW 59 YR OLD FEMALE PRESENTED TO ER CC: CHEST PAIN PMH: BRONCHITIS. METHADONE USE SI:CHEST PAIN. RT FLANK PAIN COPD. ASTHMA 97.3 80 16 131/78 99% ON RA TROPONIN(-) IS: ASA PO IV TORADOL CTA CHEST CHEST XRAY : TO TELEMETRY IS: METHADONE PO QD ASA PO QD HEPARIN SQ Q12 LIDOCAINE PATCH QD DUONEB HHN Q6HRS RTC IVF@100/HR
--- NOTE | 2019-08-12 12:58 | Consultation ---
History of Present Illness General Chief Complaint: Chest Pain Reason for Consultation: Hyponatremia Present Illness HPI "HPI: 59-year-old female presenting for chest pain. Patient states she developed sudden onset of right sided cramping tightness over the right breast and sternum that somewhat radiates down the right arm. Onset was 45 minutes ago while the patient was at rest. Denies prior episodes of similar chest pain. Denies prior trauma or injury. She is a former smoker and had quit for several years however last night bought a pack of cigarettes and was smoking last night and today causing her to cough a little. No prior cough, fever, sore throat, URI symptoms. She denies diaphoresis, palpitations, pain in the neck or back. Prior history of hypercholesterolemia however no longer taking medications as she states her triglyceride levels normalized. Did not take any medication prior to arrival. Allergies: Coded Allergies: No Known Allergies (Unverified , 01/03/19) Medication History Scheduled Methadone Hcl* (Methadone*), 100 MG ORAL DAILY, (Reported) Scheduled PRN Ibuprofen (Motrin), 600 MG ORAL Q8H PRN for For Pain Patient History Healthcare decision maker Resuscitation status Advanced Directive on File Physical Exam Last 24 Hour Vital Signs Date Time Temp Pulse Resp B/P (MAP) Pulse Ox O2 Delivery O2 Flow Rate FiO2 08/12/19 08:00 97.5 60 20 130/77 (94) 99 08/12/19 07:49 80 16 100 Room Air 21 60 16 97 08/12/19 04:00 78 08/12/19 04:00 97.2 64 18 129/78 (95) 96 08/12/19 01:03 80 16 100 Room Air 21 71 14 98 08/12/19 00:00 87 08/12/19 00:00 97.1 62 18 124/82 (96) 96 08/11/19 21:06 96.9 08/11/19 21:00 Room Air 08/11/19 20:52 65 14 100 Room Air 21 73 12 98 08/11/19 20:00 96.9 63 19 125/82 (96) 97 08/11/19 20:00 80 08/11/19 17:46 82 18 99 Room Air 21 80 18 96 08/11/19 16:45 Room Air 08/11/19 16:37 73 08/11/19 16:30 97.9 74 18 136/87 (103) 95 08/11/19 16:18 98.1 72 18 128/71 95 Room Air 08/11/19 15:53 71 16 110/62 94 Room Air 08/11/19 14:48 71 16 133/83 95 Room Air 08/11/19 13:57 97.3 77 18 118/78 99 Room Air 08/11/19 13:07 80 18 08/11/19 13:03 97.3 80 16 122/97 99 Room Air Intake and Output 08/11/19 08/12/19 19:00 07:00 Intake Total 475 ml 700 ml Balance 475 ml 700 ml Intake Oral 300 ml IV Total 175 ml 700 ml # Voids 2 Laboratory Tests Test 08/11/19 19:50 08/12/19 06:02 Total Bilirubin 0.2 MG/DL (0.2-1.0) Direct Bilirubin < 0.1 MG/DL (0.0-0.3) Aspartate Amino Transf (AST/SGOT) 23 U/L (15-37) Alanine Aminotransferase (ALT/SGPT) 22 U/L (12-78) Alkaline Phosphatase 72 U/L (46-116) Total Creatine Kinase 268 U/L (26-308) Troponin I 0.000 ng/mL (0.000-0.056) 0.000 ng/mL (0.000-0.056) Total Protein 6.9 G/DL (6.4-8.2) Albumin 3.9 G/DL (3.4-5.0) White Blood Count 5.2 K/UL (4.8-10.8) Red Blood Count 3.77 M/UL (4.20-5.40) L Hemoglobin 11.1 G/DL (12.0-16.0) L Hematocrit 34.7 % (37.0-47.0) L Mean Corpuscular Volume 92 FL (80-99) Mean Corpuscular Hemoglobin 29.5 PG (27.0-31.0) Mean Corpuscular Hemoglobin Concent 32.0 G/DL (32.0-36.0) Red Cell Distribution Width 14.3 % (11.6-14.8) Platelet Count 191 K/UL (150-450) Mean Platelet Volume 7.2 FL (6.5-10.1) Neutrophils (%) (Auto) 36.9 % (45.0-75.0) L Lymphocytes (%) (Auto) 43.5 % (20.0-45.0) Monocytes (%) (Auto) 12.3 % (1.0-10.0) H Eosinophils (%) (Auto) 5.8 % (0.0-3.0) H Basophils (%) (Auto) 1.5 % (0.0-2.0) Sodium Level 133 MMOL/L (136-145) #L Potassium Level 3.5 MMOL/L (3.5-5.1) Chloride Level 107 MMOL/L (98-107) Carbon Dioxide Level 26 MMOL/L (21-32) Anion Gap 0 mmol/L (5-15) L Blood Urea Nitrogen 17 mg/dL (7-18) Creatinine 1.0 MG/DL (0.55-1.30) Estimat Glomerular Filtration Rate > 60 mL/min (>60) Glucose Level 107 MG/DL (74-106) H Hemoglobin A1c 6.0 % (4.3-6.0) Calcium Level 8.3 MG/DL (8.5-10.1) L Magnesium Level 2.0 MG/DL (1.8-2.4) Pro-B-Type Natriuretic Peptide 72 pg/mL (0-125) Triglycerides Level 255 MG/DL (30-150) H Cholesterol Level 229 MG/DL (< 200) H LDL Cholesterol 123 mg/dL (<100) H HDL Cholesterol 47 MG/DL (40-60) Cholesterol/HDL Ratio 4.9 (3.3-4.4) H Thyroid Stimulating Hormone (TSH) 1.179 uiU/mL (0.358-3.740) Height (Feet): 5 Height (Inches): 4.00 Weight (Pounds): 160 Medications Current Medications Medications (Trade) Dose Ordered Sig/Alfred Route PRN Reason Start Time Stop Time Status Last Admin Dose Admin Acetaminophen (Tylenol) 650 mg Q4H PRN ORAL Mild Pain (Pain Scale 1-3) 08/11/19 16:00 09/10/19 15:59 08/11/19 20:36 Acetaminophen (Tylenol) 650 mg Q4H PRN ORAL Temp >100.5 08/11/19 16:00 09/10/19 15:59 Acetaminophen/ Hydrocodone Bitart (Swink 5/325) 1 tab Q6H PRN ORAL Severe Pain (Pain Scale 7-10) 08/11/19 21:00 08/18/19 20:59 Albuterol/ Ipratropium (Albuterol/ Ipratropium) 3 ml Q6H PRN HHN Shortness of Breath 08/11/19 16:00 08/16/19 15:59 08/11/19 17:46 Albuterol/ Ipratropium (Albuterol/ Ipratropium) 3 ml Q6HRT HHN 08/11/19 19:00 08/16/19 15:59 08/12/19 07:48 Aspirin (Ecotrin) 325 mg DAILY ORAL 08/12/19 09:00 09/26/19 08:59 08/12/19 08:55 Dextrose (Dextrose 50%) 25 ml Q30M PRN IV Hypoglycemia 08/11/19 16:00 11/09/19 15:59 Dextrose (Dextrose 50%) 50 ml Q30M PRN IV Hypoglycemia 08/11/19 16:00 11/09/19 15:59 Dextrose/Sodium Chloride 1,000 ml @ 100 mls/hr Q10H IV 08/11/19 16:47 09/10/19 16:46 08/12/19 03:12 Docusate Sodium (Colace) 100 mg EVERY 12 HOURS ORAL 08/11/19 21:00 09/10/19 20:59 08/12/19 08:56 Famotidine (Pepcid) 40 mg DAILY ORAL 08/12/19 09:00 11/10/19 08:59 08/12/19 08:56 Heparin Sodium (Porcine) (Heparin 5000 units/ml) 5,000 units EVERY 12 HOURS SUBQ 08/11/19 21:00 09/25/19 20:59 08/12/19 08:53 Hydromorphone HCl (Dilaudid) 0.5 mg Q4H PRN IVP Breakthrough Pain 08/11/19 21:00 08/18/19 20:59 Iohexol (Omnipaque 350 100ml) 100 ml NOW PRN INJ Radiology Procedure 08/11/19 14:00 08/13/19 13:52 Lidocaine (Lidoderm 5% PATCH) 1 patch DAILY TDERMAL 08/11/19 21:00 11/09/19 20:59 08/12/19 08:57 Lorazepam (Ativan 2mg/ml 1ml) 0.5 mg Q4H PRN IV For Anxiety 08/11/19 16:00 08/18/19 15:59 08/11/19 20:35 Lorazepam (Ativan 2mg/ml 1ml) 1 mg Q4H PRN IV severe agitation/ withdrawal 08/11/19 21:00 08/18/19 20:59 Magnesium Hydroxide (Mom) 30 ml HSPRN PRN ORAL Constipation 08/11/19 16:00 09/10/19 15:59 Methadone HCl (Methadone HCl) 100 mg DAILY ORAL 08/12/19 10:30 08/19/19 10:29 08/12/19 10:49 Methocarbamol (Robaxin) 500 mg QIDPRN PRN ORAL spasms 08/11/19 21:00 09/10/19 20:59 Metoclopramide HCl (Reglan) 10 mg Q6H PRN IVP Nausea & Vomiting 08/11/19 16:00 09/10/19 15:59 Nitroglycerin (Ntg) 0.4 mg Q5M PRN SL Prn Chest Pain 08/11/19 16:00 09/10/19 15:59 Ondansetron HCl (Zofran) 4 mg Q6H PRN IVP Nausea & Vomiting 08/11/19 16:00 09/10/19 15:59 Prochlorperazine (Compazine) 10 mg Q6H PRN IVP Nausea & Vomiting 08/11/19 16:00 09/10/19 15:59 Tramadol HCl (Ultram) 50 mg Q6H PRN ORAL Moderate Pain (Pain Scale 4-6) 08/11/19 21:00 08/18/19 20:59 Assessment/Plan Diagnosis Vesper I: #Electrolyte deranagement- #hyponatremia #chest pain #chronic pain syndrome #GERD - DC IVF - cardiology eval - 2d echo - monitor BMP, mag and phos daily - avoid nephrotoxins - daily weights - monitor UOP Kel Pacheco M.D. Aug 12, 2019 12:58
--- NOTE | 2019-08-12 13:06 | NUR ---
*-* INSURANCE *-* ALL AVAILABLE CLINICALS HAS BEEN FAXED TO: [facility] REF# [id number] #[phone] FAX#[phone] REVIEWS/CLINICALS
--- NOTE | 2019-08-12 13:57 | Cardiology Progress Note ---
Assessment/Plan Status: stable Assessment/Plan Assessment/Plan Assessment/Plan: Marj Gonzalez is a 59-year-old -Swiss female with past medical history of COPD and asthma presenting for atypical chest pain. -Echocardiogram normal LV function -Stress echo negative for ischemia -EKG/Troponin negative -CTA negative for PE Ok to d/c from cardiology standpoint Subjective Cardiovascular: Reports: no symptoms Respiratory: Reports: no symptoms Gastrointestinal/Abdominal: Reports: no symptoms Genitourinary: Reports: no symptoms Subjective No acute events, for stress test today No further chest pain no complaints Objective Last 24 Hour Vital Signs Date Time Temp Pulse Resp B/P (MAP) Pulse Ox O2 Delivery O2 Flow Rate FiO2 08/12/19 08:00 97.5 60 20 130/77 (94) 99 08/12/19 07:49 80 16 100 Room Air 21 60 16 97 08/12/19 04:00 78 08/12/19 04:00 97.2 64 18 129/78 (95) 96 08/12/19 01:03 80 16 100 Room Air 21 71 14 98 08/12/19 00:00 87 08/12/19 00:00 97.1 62 18 124/82 (96) 96 08/11/19 21:06 96.9 08/11/19 21:00 Room Air 08/11/19 20:52 65 14 100 Room Air 21 73 12 98 08/11/19 20:00 96.9 63 19 125/82 (96) 97 08/11/19 20:00 80 08/11/19 17:46 82 18 99 Room Air 21 80 18 96 08/11/19 16:45 Room Air 08/11/19 16:37 73 08/11/19 16:30 97.9 74 18 136/87 (103) 95 08/11/19 16:18 98.1 72 18 128/71 95 Room Air 08/11/19 15:53 71 16 110/62 94 Room Air 08/11/19 14:48 71 16 133/83 95 Room Air 08/11/19 13:57 97.3 77 18 118/78 99 Room Air General Appearance: no apparent distress, alert EENT: PERRL/EOMI, normal ENT inspection, TMs normal, pharynx normal Neck: non-tender, normal alignment, supple, normal inspection Rhythm: NSR Cardiovascular: normal peripheral pulses, normal rate Respiratory/Chest: chest wall non-tender, lungs clear, normal breath sounds Abdomen: normal bowel sounds, non tender, soft, no organomegaly, no mass Extremities: normal range of motion, non-tender, normal inspection, no calf tenderness, no swelling Neurologic: photograph retoucher II-XII grossly normal, no motor/sensory deficits Intake and Output 08/11/19 08/12/19 18:59 06:59 Intake Total 400 ml 775 ml Balance 400 ml 775 ml Intake Oral 300 ml IV Total 100 ml 775 ml # Voids 2 Laboratory Tests Test 08/11/19 19:50 08/12/19 06:02 Total Bilirubin 0.2 MG/DL (0.2-1.0) Direct Bilirubin < 0.1 MG/DL (0.0-0.3) Aspartate Amino Transf (AST/SGOT) 23 U/L (15-37) Alanine Aminotransferase (ALT/SGPT) 22 U/L (12-78) Alkaline Phosphatase 72 U/L (46-116) Total Creatine Kinase 268 U/L (26-308) Troponin I 0.000 ng/mL (0.000-0.056) 0.000 ng/mL (0.000-0.056) Total Protein 6.9 G/DL (6.4-8.2) Albumin 3.9 G/DL (3.4-5.0) White Blood Count 5.2 K/UL (4.8-10.8) Red Blood Count 3.77 M/UL (4.20-5.40) L Hemoglobin 11.1 G/DL (12.0-16.0) L Hematocrit 34.7 % (37.0-47.0) L Mean Corpuscular Volume 92 FL (80-99) Mean Corpuscular Hemoglobin 29.5 PG (27.0-31.0) Mean Corpuscular Hemoglobin Concent 32.0 G/DL (32.0-36.0) Red Cell Distribution Width 14.3 % (11.6-14.8) Platelet Count 191 K/UL (150-450) Mean Platelet Volume 7.2 FL (6.5-10.1) Neutrophils (%) (Auto) 36.9 % (45.0-75.0) L Lymphocytes (%) (Auto) 43.5 % (20.0-45.0) Monocytes (%) (Auto) 12.3 % (1.0-10.0) H Eosinophils (%) (Auto) 5.8 % (0.0-3.0) H Basophils (%) (Auto) 1.5 % (0.0-2.0) Sodium Level 133 MMOL/L (136-145) #L Potassium Level 3.5 MMOL/L (3.5-5.1) Chloride Level 107 MMOL/L (98-107) Carbon Dioxide Level 26 MMOL/L (21-32) Anion Gap 0 mmol/L (5-15) L Blood Urea Nitrogen 17 mg/dL (7-18) Creatinine 1.0 MG/DL (0.55-1.30) Estimat Glomerular Filtration Rate > 60 mL/min (>60) Glucose Level 107 MG/DL (74-106) H Hemoglobin A1c 6.0 % (4.3-6.0) Calcium Level 8.3 MG/DL (8.5-10.1) L Magnesium Level 2.0 MG/DL (1.8-2.4) Pro-B-Type Natriuretic Peptide 72 pg/mL (0-125) Triglycerides Level 255 MG/DL (30-150) H Cholesterol Level 229 MG/DL (< 200) H LDL Cholesterol 123 mg/dL (<100) H HDL Cholesterol 47 MG/DL (40-60) Cholesterol/HDL Ratio 4.9 (3.3-4.4) H Thyroid Stimulating Hormone (TSH) 1.179 uiU/mL (0.358-3.740) Marck Black MD Aug 12, 2019 13:57
--- NOTE | 2019-08-12 15:30 | Consultation ---
DATE OF CONSULTATION: 08/12/2019 PULMONARY CONSULTATION CONSULTING PHYSICIAN: Markel Zelaya MD. HISTORY OF PRESENT ILLNESS: This is a 59-year-old female admitted to the hospital with chest pain. The patient reported right-sided cramping chest pain with radiation to the right arm. The patient is an ex-smoker, although has been smoking lately. She denies any diaphoresis or neck pain. The patient is known to have hyperlipidemia. The patient is also noted to be on methadone. The patient underwent a CT angio which was negative for PE. Her troponin x1 is negative and also EKG is within normal limits. The patient reports history of asthma/COPD. CT chest was unrevealing PAST MEDICAL HISTORY: Notable for hyperlipidemia and chronic pain. REVIEW OF SYSTEMS: Denies any headaches, hematemesis, melena, hematochezia, night sweats, or weight loss. HOME MEDICATIONS: Reviewed and reconciled in the chart. PHYSICAL EXAMINATION: GENERAL: Reveals a 59-year-old female. VITAL SIGNS: Blood pressure 130/70, heart rate 64, respirations 18. O2 saturation 98% on room air. HEENT: Unremarkable. LUNGS: Clear to breath sounds bilaterally. HEART: Normal heart sounds. ABDOMEN: Soft. EXTREMITIES: There is no edema. LABORATORY DATA: Lab testing shows normal CBC and BMP with hemoglobin 11. Troponins negative x2. Coags are negative. IMAGING STUDIES: As discussed above. She underwent a CT of chest angio which shows nonspecific focal subpleural ground-glass opacity, likely atelectasis, otherwise no abnormalities noted. X-ray chest was negative. IMPRESSION: 1. Chest pain. 2. I do not suspect acute pulmonary pathology. 3. History of asthma, 4. Chronic obstructive pulmonary disease. 5. Chronic pain. DISCUSSION: Admit to the hospital. Continue current medications and care. We will order oxygen and pulmonary hygiene. Continue methadone. We will follow carefully. Markel Zelaya M.D. DR: KOLE JOB#: [id number] CC:
[2019-08-12] MEDS ORDERED: DOBUTamine 250mg/250ml Premix IV ONE (15:46)
[2019-08-12 16:00] VITALS: BP 121/80
--- NOTE | 2019-08-12 19:29 | NUR ---
HAND-OFF: Report given to LENORA Downey. Pt in stable condition, endorsed plan of care.
--- NOTE | 2019-08-12 19:53 | NUR ---
NURSE NOTES: Received patient report from LENORA [place]. Patient shows no signs of distress or pain at the time. Patient is AO x 4. IV is patent and flushed. There are no signs of erythema, infiltration, or bleeding. Bed is in the lowest position, call light is within reach, side rails up x 3. Will continue to monitor.
[2019-08-12 20:00] VITALS: BP 142/89
[2019-08-12] MEDS: LORazepam Inj 2mg/ml 1ml IV PRN (20:59)
[2019-08-13] VITALS: BP 146/88
[2019-08-13] MEDS: Albuterol/Ipratropium 3ml neb HHN SCH ×3 (01:24→23:00)
[2019-08-13 04:00] VITALS: BP 150/83
[2019-08-13 06:58] LABS: ANION GAP 9 mmol/L (5-15); BLOOD UREA NITROGEN 14 mg/dL (7-18); CALCIUM 8.8 MG/DL (8.5-10.1); CARBON DIOXIDE 27 MMOL/L (21-32); CHLORIDE 107 MMOL/L (98-107); CREATININE 0.9 MG/DL (0.55-1.30); PHOSPHORUS 3.8 MG/DL (2.5-4.9); POTASSIUM 3.7 MMOL/L (3.5-5.1); SODIUM 143 MMOL/L (136-145)
--- NOTE | 2019-08-13 06:59 | Discharge Summary ---
Discharge Summary Hospital Course Date of Admission Aug 11, 2019 at 14:34 Date of Discharge Admitting Diagnosis chest pain HPI Haleigh Gonzalez is a 59 year old female who was admitted on Aug 11, 2019 at 14:34 for Chest Pain Hospital Course Marj Gonzalez is a 59-year-old -Slovenian female with past medical history of COPD and asthma presenting for atypical chest pain. #Atypical chest pain -cont medical management, telemetry obs -Troponins x3 (first 1-) -EKGs x3 (first 1 within normal limits) -CTA chest done in the ED is negative for PE -Appreciate cardiology consult, s/p stress test today, negative #Right flank pain, positional, possibly related to muscle spasm -Patient's complaints do not correlate to her exam, suspicious for malingering -cont Robaxin; patient states she has a bad reaction to Flexeril #Asthma #COPD #Wheezing -Continue home medications -Monitor SPO2, patient is currently on room air, with no symptoms of exacerbation -CT scan reviewed with very minimal ground-glass on right lower lobe noted -Respiratory treatments as needed and scheduled #Methadone use Patient states she takes methadone. She is able to show me a white bottle with a label on it w Dr. Vincent Larsen's name on is and phone number [phone]. I am unable to pull up a history on CURES for this patient as she likely gets meds filled from a methadone clinic. I spoke to pharmacy who will follow up by calling the methadone clinic in the am to verify. -We will add as needed medication for agitation, and monitor for signs and symptoms of withdrawal until a.m. when pharmacy can verify medication -Cures search done, no report available -Consider pain management consult -pharmacy confirmed dose #Dispo -Home with home health #CODE STATUS: Full code The time of my note may not reflect the time of my patient encounter. 35 minutes were spent on case, with more than 50% of time dedicated to care coordination and counseling. D/w Dr. Black and RN. An additional 35 mins spent on chart review of H&P, progress notes, clinical sales consultant notes, labs and radiographic imaging. Discharge Condition Upon Discharge: stable Discharge Vital Signs Last Vital Signs Date Time Temp Pulse Resp B/P (MAP) Pulse Ox O2 Delivery O2 Flow Rate FiO2 08/13/19 04:00 80 08/13/19 04:00 97.6 19 150/83 (105) 97 08/13/19 01:24 Room Air 21 Discharge Disposition Patient was discharged to Alice Casas M.D. Aug 13, 2019 06:59
--- NOTE | 2019-08-13 07:05 | NUR ---
HAND-OFF: Report given to LENORA [place]. Patient shows no signs of distress or pain. patient is still asleep. Endorsed plan of care.
[2019-08-13 07:12] LABS: BASOPHILS % (AUTO) 1.6 % (0.0-2.0); EOSINOPHILS % (AUTO) 7.2 % (0.0-3.0); HEMATOCRIT 33.2 % (37.0-47.0); HEMOGLOBIN 10.8 G/DL (12.0-16.0); LYMPHOCYTES % (AUTO) 44.9 % (20.0-45.0); MEAN CORPUSCULAR VOLUME 90 FL (80-99); MONOCYTES % (AUTO) 10.3 % (1.0-10.0); PLATELET COUNT 200 K/UL (150-450); RED BLOOD COUNT 3.68 M/UL (4.20-5.40); RED CELL DISTRIBUTION WIDTH 14.2 % (11.6-14.8); WHITE BLOOD COUNT 4.5 K/UL (4.8-10.8)
--- NOTE | 2019-08-13 07:46 | NUR ---
NURSE NOTES: Received report from LENORA Downey. Observed pt sleeping. Pt breathing even and unlabored in RA, no s/sx of acute distress. IV site on L AC patent and asymptomatic. Bed on lowest position, call light within reach. Will continue plan of care.
[2019-08-13 08:00] VITALS: BP 139/80
[2019-08-13] MEDS ORDERED: Albuterol/Ipratropium 3ml neb HHN PRN (08:00)
--- NOTE | 2019-08-13 08:01 | General Progress Note ---
Assessment/Plan Status: stable Assessment/Plan: Marj Gonzalez is a 59-year-old -Indian female with past medical history of COPD and asthma presenting for atypical chest pain. #Atypical chest pain 2/2 muscle spasm/inflammation -ACS ruled out -cont medical management -Troponins neg, EKG within normal limits, stress test 08/11 negative for ACS -CTA chest done in the ED is negative for PE -Appreciate cardiology consult, s/p stress test today, negative #Right flank pain, positional, possibly related to muscle spasm -Patient's complaints do not correlate to her exam, suspicious for malingering -cont Robaxin; patient states she has a bad reaction to Flexeril #Acute Asthma exacerbation #COPD #Wheezing -Continue home medications -Monitor SPO2, patient is currently on room air, with no symptoms of exacerbation -CT scan reviewed with very minimal ground-glass on right lower lobe noted -Respiratory treatments as needed and scheduled -cont duonebs sched/PRN -solumedrol IV -mucinex #Methadone use Patient states she takes methadone. She is able to show me a white bottle with a label on it w Dr. Vincent Larsen's name on is and phone number [phone]. I am unable to pull up a history on CURES for this patient as she likely gets meds filled from a methadone clinic. I spoke to pharmacy who will follow up by calling the methadone clinic in the am to verify. -We will add as needed medication for agitation, and monitor for signs and symptoms of withdrawal until a.m. when pharmacy can verify medication -Cures search done, no report available -Consider pain management consult -pharmacy confirmed dose #Dispo -Home with home health #CODE STATUS: Full code 35 minutes were spent on case, with more than 50% of time dedicated to care coordination and counseling. D/w Dr. Black and RN. The time of my note may not reflect the time of my patient encounter. Subjective Allergies: Coded Allergies: No Known Allergies (Unverified , 01/03/19) Subjective F/u for CP. Stress test on 08/11 negative. Pt cont to have diffuse wheezing, notes non-productive cough, states she cont to have right sided muscle aches. No SOB at this time, states breathing treatments help. No f/c, n/v, abd pain, dysuria, hematuria/constipation. Objective Last 24 Hour Vital Signs Date Time Temp Pulse Resp B/P (MAP) Pulse Ox O2 Delivery O2 Flow Rate FiO2 08/13/19 04:00 80 08/13/19 04:00 97.6 71 19 150/83 (105) 97 08/13/19 01:24 75 18 99 Room Air 21 79 18 98 08/13/19 00:00 97.3 73 19 146/88 (107) 96 08/12/19 21:29 97.5 08/12/19 21:00 Room Air 08/12/19 20:00 97.6 71 19 142/89 (106) 97 08/12/19 20:00 69 08/12/19 19:59 75 18 99 Room Air 21 71 18 96 08/12/19 16:00 97.5 75 20 121/80 (94) 97 08/12/19 15:37 79 08/12/19 12:33 64 08/12/19 12:00 97.6 68 20 139/83 (101) 100 08/12/19 09:00 Room Air 08/12/19 08:00 97.5 60 20 130/77 (94) 99 Intake and Output 08/12/19 08/13/19 19:00 07:00 Intake Total 600 ml Balance 600 ml Intake Oral 600 ml # Voids 4 2 Laboratory Tests 08/13/19 05:10: White Blood Count 4.5L, Red Blood Count 3.68L, Hemoglobin 10.8L, Hematocrit 33.2L, Mean Corpuscular Volume 90, Mean Corpuscular Hemoglobin 29.4, Mean Corpuscular Hemoglobin Concent 32.5, Red Cell Distribution Width 14.2, Platelet Count 200, Mean Platelet Volume 7.6, Neutrophils (%) (Auto) 36.0L, Lymphocytes ( %) (Auto) 44.9, Monocytes (%) (Auto) 10.3H, Eosinophils (%) (Auto) 7.2H, Basophils (%) (Auto) 1.6, Sodium Level 143#, Potassium Level 3.7, Chloride Level 107, Carbon Dioxide Level 27, Anion Gap 9, Blood Urea Nitrogen 14, Creatinine 0.9, Estimat Glomerular Filtration Rate > 60, Glucose Level 104, Calcium Level 8.8, Phosphorus Level 3.8, Magnesium Level 2.0, Troponin I 0.000 Height (Feet): 5 Height (Inches): 4.00 Weight (Pounds): 165 Objective GENERAL: No acute distress, appears comfortable, alert HEENT: NCAT, non-icteric eyes, pupils PERRLA Neck: No cervical lymphadenopathy, trachea midline CV: Regular rate and rhythm, no murmurs rubs or gallops; chest palpated with no tenderness, shoulder and upper right extremity palpated where patient states that she has spasm with no tenderness or muscle spasm noted. RESP: diffuse wheezing in lung montgomery b/l, no accessory muscle usage or conversational dyspnea ABD: soft, non-distended, no TTP EXT: Normal muscle tone, +5/5 muscle strength NEURO: No obvious deficits, alert and oriented x3 Alice Casas M.D. Aug 13, 2019 08:01
--- NOTE | 2019-08-13 08:52 | Nephrology Progress Note ---
Assessment/Plan Plan #Electrolyte deranagement- #hyponatremia #chest pain #chronic pain syndrome #GERD - DC IVF - cardiology eval - 2d echo - monitor BMP, mag and phos daily - avoid nephrotoxins - daily weights - monitor UOP Subjective ROS Limited/Unobtainable: No Constitutional: Reports: weakness HEENT: Denies: no symptoms, eye pain, blurred vision, tearing, double vision, ear pain, ear discharge, nose pain, nose congestion, throat pain, throat swelling, mouth pain, mouth swelling, other Genitourinary: Denies: no symptoms, burning, discharge, frequency, flank pain, hematuria, incontinence, pain, urgency, other Neurologic/Psychiatric: Denies: no symptoms, anxiety, depressed, emotional problems, headache, numbness, paresthesia, pre-existing deficit, seizure, tingling, tremors, weakness, other Subjective feeling better chest pain resolved Objective Objective Last 24 Hour Vital Signs Date Time Temp Pulse Resp B/P (MAP) Pulse Ox O2 Delivery O2 Flow Rate FiO2 08/13/19 08:00 62 20 100 Room Air 21 60 20 97 08/13/19 04:00 80 08/13/19 04:00 97.6 71 19 150/83 (105) 97 08/13/19 01:24 75 18 99 Room Air 21 79 18 98 08/13/19 00:00 97.3 73 19 146/88 (107) 96 08/12/19 21:29 97.5 08/12/19 21:00 Room Air 08/12/19 20:00 97.6 71 19 142/89 (106) 97 08/12/19 20:00 69 08/12/19 19:59 75 18 99 Room Air 21 71 18 96 08/12/19 16:00 97.5 75 20 121/80 (94) 97 08/12/19 15:37 79 08/12/19 12:33 64 08/12/19 12:00 97.6 68 20 139/83 (101) 100 08/12/19 09:00 Room Air Intake and Output 08/12/19 08/13/19 19:00 07:00 Intake Total 600 ml Balance 600 ml Intake Oral 600 ml # Voids 4 2 Laboratory Tests 08/13/19 05:10: White Blood Count 4.5L, Red Blood Count 3.68L, Hemoglobin 10.8L, Hematocrit 33.2L, Mean Corpuscular Volume 90, Mean Corpuscular Hemoglobin 29.4, Mean Corpuscular Hemoglobin Concent 32.5, Red Cell Distribution Width 14.2, Platelet Count 200, Mean Platelet Volume 7.6, Neutrophils (%) (Auto) 36.0L, Lymphocytes ( %) (Auto) 44.9, Monocytes (%) (Auto) 10.3H, Eosinophils (%) (Auto) 7.2H, Basophils (%) (Auto) 1.6, Sodium Level 143#, Potassium Level 3.7, Chloride Level 107, Carbon Dioxide Level 27, Anion Gap 9, Blood Urea Nitrogen 14, Creatinine 0.9, Estimat Glomerular Filtration Rate > 60, Glucose Level 104, Calcium Level 8.8, Phosphorus Level 3.8, Magnesium Level 2.0, Troponin I 0.000 Height (Feet): 5 Height (Inches): 4.00 Weight (Pounds): 165 Kel Pacheco M.D. Aug 13, 2019 08:52
[2019-08-13] MEDS ORDERED: Solu-MEDROL 125mg Inj IVP SCH (09:00)
[2019-08-13] MEDS: Heparin 5000 units/ml inj SUBQ SCH ×2 (09:28→20:12)
[2019-08-13] MEDS: guaiFENesin ER 600mg tab ORAL SCH ×2 (09:32→20:13)
[2019-08-13] MEDS: Aspirin EC 325mg tab ORAL SCH (09:33)
[2019-08-13] MEDS: Docusate 100mg cap ORAL SCH ×2 (09:33→20:13)
--- NOTE | 2019-08-13 10:00 | NUR ---
PT NOTE Patient demonstrates independent bed mobility, transfers and ambulation without assistive device, good balance. Patient denied dizziness or SOB during or after ambulation. Patient able to ascend/descend 8 stairs holding one rail independently. No further skilled inpatient PT intervention warranted, patient discharged from PT. Rosa Elena COOLEY notified. Addendum: 08/13/19 at 1121 by KEDAR OCHOA PT Amended: Links added.
--- NOTE | 2019-08-13 10:01 | Pulmonology Progress Note ---
Subjective ROS Limited/Unobtainable: No Interval Events: None new; feeling better Constitutional: Reports: no symptoms HEENT: Repors: no symptoms Respiratory: Reports: no symptoms Cardiovascular: Reports: no symptoms Gastrointestinal/Abdominal: Reports: no symptoms Allergies: Coded Allergies: No Known Allergies (Unverified , 01/03/19) Objective Last 24 Hour Vital Signs Date Time Temp Pulse Resp B/P (MAP) Pulse Ox O2 Delivery O2 Flow Rate FiO2 08/13/19 08:00 98.4 68 20 139/80 (99) 100 08/13/19 08:00 62 20 100 Room Air 21 60 20 97 08/13/19 04:00 80 08/13/19 04:00 97.6 71 19 150/83 (105) 97 08/13/19 01:24 75 18 99 Room Air 21 79 18 98 08/13/19 00:00 97.3 73 19 146/88 (107) 96 08/12/19 21:29 97.5 08/12/19 21:00 Room Air 08/12/19 20:00 97.6 71 19 142/89 (106) 97 08/12/19 20:00 69 08/12/19 19:59 75 18 99 Room Air 21 71 18 96 08/12/19 16:00 97.5 75 20 121/80 (94) 97 08/12/19 15:37 79 08/12/19 12:33 64 08/12/19 12:00 97.6 68 20 139/83 (101) 100 Intake and Output 08/12/19 08/13/19 19:00 07:00 Intake Total 600 ml Balance 600 ml Intake Oral 600 ml # Voids 4 2 General Appearance: no acute distress Respiratory: chest wall non-tender, decreased breath sounds Cardiovascular: normal peripheral pulses Abdomen: normal bowel sounds Laboratory Tests 08/13/19 05:10: White Blood Count 4.5L, Red Blood Count 3.68L, Hemoglobin 10.8L, Hematocrit 33.2L, Mean Corpuscular Volume 90, Mean Corpuscular Hemoglobin 29.4, Mean Corpuscular Hemoglobin Concent 32.5, Red Cell Distribution Width 14.2, Platelet Count 200, Mean Platelet Volume 7.6, Neutrophils (%) (Auto) 36.0L, Lymphocytes ( %) (Auto) 44.9, Monocytes (%) (Auto) 10.3H, Eosinophils (%) (Auto) 7.2H, Basophils (%) (Auto) 1.6, Sodium Level 143#, Potassium Level 3.7, Chloride Level 107, Carbon Dioxide Level 27, Anion Gap 9, Blood Urea Nitrogen 14, Creatinine 0.9, Estimat Glomerular Filtration Rate > 60, Glucose Level 104, Calcium Level 8.8, Phosphorus Level 3.8, Magnesium Level 2.0, Troponin I 0.000 Current Medications Medications (Trade) Dose Ordered Sig/Alfred Route PRN Reason Start Time Stop Time Status Last Admin Dose Admin Acetaminophen (Tylenol) 650 mg Q4H PRN ORAL Mild Pain (Pain Scale 1-3) 08/11/19 16:00 09/10/19 15:59 08/12/19 20:59 Acetaminophen (Tylenol) 650 mg Q4H PRN ORAL Temp >100.5 08/11/19 16:00 09/10/19 15:59 Acetaminophen/ Hydrocodone Bitart ([place] 5/325) 1 tab Q6H PRN ORAL Severe Pain (Pain Scale 7-10) 08/11/19 21:00 08/18/19 20:59 Albuterol/ Ipratropium (Albuterol/ Ipratropium) 3 ml Q4HRT HHN 08/13/19 11:00 08/23/19 10:59 Albuterol/ Ipratropium (Albuterol/ Ipratropium) 3 ml Q4HRT PRN HHN Shortness of Breath 08/13/19 08:00 08/23/19 07:59 08/13/19 08:03 Aspirin (Ecotrin) 325 mg DAILY ORAL 08/12/19 09:00 09/26/19 08:59 08/13/19 09:33 Dextrose (Dextrose 50%) 25 ml Q30M PRN IV Hypoglycemia 08/11/19 16:00 11/09/19 15:59 Dextrose (Dextrose 50%) 50 ml Q30M PRN IV Hypoglycemia 08/11/19 16:00 11/09/19 15:59 Docusate Sodium (Colace) 100 mg EVERY 12 HOURS ORAL 08/11/19 21:00 09/10/19 20:59 08/13/19 09:33 Famotidine (Pepcid) 40 mg DAILY ORAL 08/12/19 09:00 11/10/19 08:59 08/13/19 09:32 Guaifenesin (Mucinex ER) 600 mg BID@0900,2100 ORAL 08/13/19 09:00 11/11/19 08:59 08/13/19 09:32 Heparin Sodium (Porcine) (Heparin 5000 units/ml) 5,000 units EVERY 12 HOURS SUBQ 08/11/19 21:00 09/25/19 20:59 08/13/19 09:28 Hydromorphone HCl (Dilaudid) 0.5 mg Q4H PRN IVP Breakthrough Pain 08/11/19 21:00 08/18/19 20:59 Iohexol (Omnipaque 350 100ml) 100 ml NOW PRN INJ Radiology Procedure 08/11/19 14:00 08/13/19 13:52 Lidocaine (Lidoderm 5% PATCH) 1 patch DAILY TDERMAL 08/11/19 21:00 11/09/19 20:59 08/13/19 09:34 Lorazepam (Ativan 2mg/ml 1ml) 0.5 mg Q4H PRN IV For Anxiety 08/11/19 16:00 08/18/19 15:59 08/12/19 20:59 Lorazepam (Ativan 2mg/ml 1ml) 1 mg Q4H PRN IV severe agitation/ withdrawal 08/11/19 21:00 08/18/19 20:59 Magnesium Hydroxide (Mom) 30 ml HSPRN PRN ORAL Constipation 08/11/19 16:00 09/10/19 15:59 Methadone HCl (Methadone HCl) 100 mg DAILY ORAL 08/12/19 10:30 08/19/19 10:29 08/13/19 09:34 Methocarbamol (Robaxin) 500 mg QIDPRN PRN ORAL spasms 08/11/19 21:00 09/10/19 20:59 Methylprednisolone Sodium Succinate (Solu-MEDROL) 40 mg Q6H IVP 08/13/19 15:00 11/11/19 14:59 Methylprednisolone Sodium Succinate (Solu-MEDROL) 125 mg ONCE IVP 08/13/19 09:00 08/13/19 10:00 08/13/19 09:34 Metoclopramide HCl (Reglan) 10 mg Q6H PRN IVP Nausea & Vomiting 08/11/19 16:00 09/10/19 15:59 Nitroglycerin (Ntg) 0.4 mg Q5M PRN SL Prn Chest Pain 08/11/19 16:00 09/10/19 15:59 Ondansetron HCl (Zofran) 4 mg Q6H PRN IVP Nausea & Vomiting 08/11/19 16:00 09/10/19 15:59 Prochlorperazine (Compazine) 10 mg Q6H PRN IVP Nausea & Vomiting 08/11/19 16:00 09/10/19 15:59 Tramadol HCl (Ultram) 50 mg Q6H PRN ORAL Moderate Pain (Pain Scale 4-6) 08/11/19 21:00 08/18/19 20:59 Assessment/Plan Assessment/Plan IMPRESSION: 1. Chest pain. 2. Chronic methadone use 3. History of asthma, 4. Chronic obstructive pulmonary disease. 5. Chronic pain. DISCUSSION: Continue current medications and care. Continue oxygen and pulmonary hygiene. Continue methadone. I will follow carefully. Zainab Thompson Omar Syed MD Aug 13, 2019 10:01
--- NOTE | 2019-08-13 11:17 | NUR ---
CASE MANAGEMENT:REVIEW 08/13/19 SI: CHEST PAIN. COPD 98.4 60 20 139/80 100% ON RA H/H-10.8/33.2 TROPONIN(-) X4 IS: IV SOLUMEDROL Q6HRS DUONEB HHN Q4HRS RTC METHADONE PO QD ASA PO QD PEPCID PO QD HEPARIN SQ Q12 LIDOCAINE PATCH QD : TELEMETRY STATUS DCP; FROM HOME PLAN: HOME HEALTH UPON DISCHARGE
[2019-08-13 12:00] VITALS: BP 150/84
--- NOTE | 2019-08-13 13:40 | NUR ---
NURSE NOTES: Informed RT that pt tested negative for covid-19 rapid test.
--- NOTE | 2019-08-13 13:42 | CDS Physician Query ---
Clarification is required for compliance, coding accuracy, and to reflect severity of illness for this patient Dear Dr. Alice Casas Date 08/13/2019 Customer Consultant/CDS' Name Eula Gamez Clinical Documentation states: Discharge note - 59-year-old -Greek female with past medical history of COPD and asthma presenting for atypical chest pain. #Atypical chest pain -Troponins x3 (first 1-) -EKGs x3 (first 1 within normal limits)...Right flank pain, positional, possibly related to muscle spasm...COPD...no symptoms of exacerbation 08/11 consult: chronic pain syndrome Please document the suspected etiology of Chest Pain: [X] Costochondritis [] Acute Coronary Syndrome [] Pericarditis [] Anxiety [] Cancer [] Pneumonia [] GERD/Esophagitis [] Other: [] Unable to determine Present on Admission: [] Yes [] No [] Clinically Undetermined __Alice Casas __08/14/19 Physician signature Date Please also document in your Progress Notes and/or Discharge Summary and indicate if the condition was present on admission. SAVANNAHD
--- NOTE | 2019-08-13 14:09 | NUR ---
*-* INSURANCE *-* UPDATED CLINICALS AND REVIEWS HAVE BEEN FAXED TO: [facility] REF# [id number] #[phone] FAX#[phone] REVIEWS/CLINICALS
[2019-08-13] MEDS: Solu-MEDROL 40mg Inj IVP SCH ×2 (15:32→20:13)
--- NOTE | 2019-08-13 15:53 | NUR ---
*-*DISCHARGE PLANNING*-* PATIENT HAS BEEN REFERRED TO: [facility] P: [phone] S/W EMA, NOT COVER WITH THIS INSURANCE [facility] P: [phone] S/W BROOKE, NOT COVERED WITH THIS INSURANCE, NOT COVER FOR THIS AREA ZIP-CODE [id number] [facility] P: [phone] S/W GABRIELA, NOT ACCEPTING PT/OT, ONLY NURSING [facility] P: [phone] S/W ATA, NOT COVERED TO SERVICE THE AREA ZIPCODE [id number] [facility] P: [phone] S/W ANNA, NOT COVER WITH THIS INSURANCE. [facility] P: [phone] S/W BIBIANA, NOT COVERED WITH IS INSURANCE [facility] P: [phone] S/W ADAMS, NOT ABLE TO SERVICE THIS PATIENT WITH OT/PT. [facility] P: [phone] S/W RONEN, NOT COVERED W/ BLUE SHIELD [employer]. [facility] THE [facility] P: [phone] S/W CELINE, NOT ACCEPTING ANY PATIENT [facility] P:[phone] S/W LAYNE, PATIENT TOO [facility] P: [phone] S/W ADORE, NOT COVERED WITH INSURE AT THE MOMENT [facility] P: [phone] S/W ELADIO, NOT COVERED WITH IS INSURANCE FOR THIS AREA [facility] P: [phone] NO ANSWER [facility] P: [phone] S/W PEYMAN, NOT SERVICING PATIENTS AT THIS TIME [facility] P: [phone] S/W JAYE, NOT COVERED WITH PATIENTS [facility] P: [phone] S/W CELINE, NOT COVER WITH BLUE SHIELD INSURANCE [facility] P: [phone] S/W KARL, NOT SERVICED WITH THIS PATIENTS INSURANCE
[2019-08-13 16:00] VITALS: BP_SYST 147; BP_SYST 166; BP_DIAS 91; BP_DIAS 93
--- NOTE | 2019-08-13 17:00 | NUR ---
NURSE NOTES: Called RT to follow up regarding the pt's routine breathing tx.
--- NOTE | 2019-08-13 18:31 | NUR ---
NURSE NOTES: Called RT again to f/u with routine breathing tx, as pt missed 1100 and 1500 doses per EMAR.
--- NOTE | 2019-08-13 19:15 | NUR ---
HAND-OFF: Report given to LENORA Urbina. Pt in stable condition, endorsed plan of care.
--- NOTE | 2019-08-13 19:30 | NUR ---
NURSE NOTES: Received report from LENORA [place]. Patient is awake, on bed, alert and oriented x 4. On cardiac diet and can swallow whole pill, instructed and amenable. desk monitor is in placed, shows sinus rhythm with no chest pain reported. Patient is ambulatory with steady gait. On room air saturating 95%, safety measures are in placed, bed in lowest and locked position. Side rails up x 2. Call light button and bedside table within reach, will continue plan of care.
[2019-08-13 20:00] VITALS: BP 154/90
[2019-08-13] MEDS: LORazepam Inj 2mg/ml 1ml IV PRN (20:26)
--- NOTE | 2019-08-13 21:48 | Cardiology Progress Note ---
Assessment/Plan Status: stable Assessment/Plan Assessment/Plan Assessment/Plan: Marj Gonzalez is a 59-year-old -Wallisian female with past medical history of COPD and asthma presenting for atypical chest pain. -Echocardiogram normal LV function -Stress echo negative for ischemia -EKG/Troponin negative -CTA negative for PE Ok to d/c from cardiology standpoint Subjective Cardiovascular: Reports: no symptoms Respiratory: Reports: no symptoms Gastrointestinal/Abdominal: Reports: no symptoms Genitourinary: Reports: no symptoms Subjective No acute events, negative stress test No further chest pain no complaints COVID pending Objective Last 24 Hour Vital Signs Date Time Temp Pulse Resp B/P (MAP) Pulse Ox O2 Delivery O2 Flow Rate FiO2 08/13/19 20:00 97.6 75 15 154/90 (111) 96 08/13/19 19:13 96 20 98 Room Air 21 94 20 92 08/13/19 16:00 97.5 78 20 147/93 (111) 95 08/13/19 15:19 71 08/13/19 12:00 97.7 66 20 150/84 (106) 97 08/13/19 11:27 61 08/13/19 09:00 Room Air 08/13/19 08:00 98.4 68 20 139/80 (99) 100 08/13/19 08:00 70 08/13/19 08:00 62 20 100 Room Air 21 60 20 97 08/13/19 04:00 80 08/13/19 04:00 97.6 71 19 150/83 (105) 97 08/13/19 01:24 75 18 99 Room Air 21 79 18 98 08/13/19 00:00 97.3 73 19 146/88 (107) 96 General Appearance: no apparent distress, alert EENT: PERRL/EOMI, normal ENT inspection, TMs normal, pharynx normal Neck: non-tender, normal alignment, supple, normal inspection Rhythm: NSR Cardiovascular: normal peripheral pulses, normal rate, regular rhythm Respiratory/Chest: lungs clear, normal breath sounds, no respiratory distress Abdomen: normal bowel sounds, non tender, no organomegaly, no mass Extremities: normal range of motion, non-tender, normal inspection Neurologic: chief of production II-XII grossly normal, no motor/sensory deficits Intake and Output 08/12/19 08/13/19 19:00 07:00 Intake Total 600 ml Balance 600 ml Intake Oral 600 ml # Voids 4 2 Laboratory Tests Test 08/13/19 05:10 White Blood Count 4.5 K/UL (4.8-10.8) L Red Blood Count 3.68 M/UL (4.20-5.40) L Hemoglobin 10.8 G/DL (12.0-16.0) L Hematocrit 33.2 % (37.0-47.0) L Mean Corpuscular Volume 90 FL (80-99) Mean Corpuscular Hemoglobin 29.4 PG (27.0-31.0) Mean Corpuscular Hemoglobin Concent 32.5 G/DL (32.0-36.0) Red Cell Distribution Width 14.2 % (11.6-14.8) Platelet Count 200 K/UL (150-450) Mean Platelet Volume 7.6 FL (6.5-10.1) Neutrophils (%) (Auto) 36.0 % (45.0-75.0) L Lymphocytes (%) (Auto) 44.9 % (20.0-45.0) Monocytes (%) (Auto) 10.3 % (1.0-10.0) H Eosinophils (%) (Auto) 7.2 % (0.0-3.0) H Basophils (%) (Auto) 1.6 % (0.0-2.0) Sodium Level 143 MMOL/L (136-145) # Potassium Level 3.7 MMOL/L (3.5-5.1) Chloride Level 107 MMOL/L (98-107) Carbon Dioxide Level 27 MMOL/L (21-32) Anion Gap 9 mmol/L (5-15) Blood Urea Nitrogen 14 mg/dL (7-18) Creatinine 0.9 MG/DL (0.55-1.30) Estimat Glomerular Filtration Rate > 60 mL/min (>60) Glucose Level 104 MG/DL (74-106) Calcium Level 8.8 MG/DL (8.5-10.1) Phosphorus Level 3.8 MG/DL (2.5-4.9) Magnesium Level 2.0 MG/DL (1.8-2.4) Troponin I 0.000 ng/mL (0.000-0.056) Microbiology Date/Time Source Procedure Growth Status 08/13/19 12:00 Nasopharynx SARS-CoV-2 RdRp Gene Assay - Final Complete Marck Black MD Aug 13, 2019 21:48
[2019-08-14] VITALS: BP 146/76
[2019-08-14] MEDS: Solu-MEDROL 40mg Inj IVP SCH (02:39)
[2019-08-14] MEDS: Albuterol/Ipratropium 3ml neb HHN SCH ×2 (02:57→07:33)
[2019-08-14 04:00] VITALS: BP 143/80
[2019-08-14] MEDS ORDERED: SPIRIVA18 MCG INH (07:18)
[2019-08-14] MEDS ORDERED: MEDROL DOSEPAK4 MG ORAL (07:18)
--- NOTE | 2019-08-14 07:24 | NUR ---
HAND-OFF: Report given to LENORA Le. Patient is awake, alert and oriented, no chest pain nor other complaints made at this time. Plan of care endorsed.
--- NOTE | 2019-08-14 07:30 | NUR ---
NURSE NOTES: Received report from LENORA Urbina. Patient is asleep but arousable to name. No signs of distress. No complaints of pain. Breathing is regular and unlabored on room air. Radial pulses palpable. L AC 20 g SL without redness or signs of infiltration. Bed low and locked, call light in reach, side rails x2 raised. Will continue to monitor.
--- NOTE | 2019-08-14 07:40 | NUR ---
NURSE NOTES: Per RT, pt. refused breathing treatment.
[2019-08-14 07:54] VITALS: BP 130/67
--- NOTE | 2019-08-14 08:09 | NUR ---
NURSE NOTES: Huddled with Dr. Casas. Pt. to be discharged today. Orders pending.
[2019-08-14] MEDS ORDERED: NORVASC2.5 MG ORAL (08:25)
--- NOTE | 2019-08-14 08:29 | Discharge Summary ---
Discharge Summary Hospital Course Date of Admission Aug 11, 2019 at 14:34 Date of Discharge Admitting Diagnosis chest pain HPI Haleigh Gonzalez is a 59 year old female who was admitted on Aug 11, 2019 at 14:34 for Chest Pain PE: General: NAD, A&O x 3 HEENT: NCAT, EOMi, MMM CV: RRR, no murmurs, rubs, or gallops Pulm: Mild wheezing heard in lower bases otherwise no accessory muscle usage or conversational dyspnea, on room air GI: Soft, nontender, nondistended, bowel sounds present Ext: No lower extremity edema bilaterally Skin: no rashes lesions or ulcers Msk: Joints symmetrical in upper extremity and lower extremity bilaterally, no joint swelling. Neuro: CN 2-12 grossly intact bilaterally, no focal signs. Hospital Course Marj Gonzalez is a 59-year-old -[place]anaian female with past medical history of COPD and asthma presenting for atypical chest pain. Cardiology consulted patient underwent stress test which was negative and ACS was ruled out. CTA negative for PE. Pain due to costochondritis and muscle spasms. Patient noted with acute asthma exacerbation, was given IV steroids and inhaler/ breathing treatments with symptomatic improvement. Patient to be DC with Medro Dosepak, Spiriva. Patient noted to have hypertension during hospital stay, amlodipine initiated. Patient instructed to follow-up with PCP in 1 week for repeat BP check and medication adjustment. Patient to be DC home in stable condition. #Atypical chest pain 2/2 muscle spasm/inflammation, ACS ruled out #Costochondritis #Right flank pain, positional, possibly related to muscle spasm #Acute Asthma exacerbation #COPD #Wheezing #Methadone use D/c planning >30 mins. Discharge Medications New Medications: Methylprednisolone (Methylprednisolone*) 4MG Dspk 4 MG ORAL DIRECTED for 6 Days, #21 EA 0 Refills Day 1: Two tablets before breakfast, one after lunch, one after dinner, and two at bedtime. If started late in the day, take all six tablets at once or divide into two or three doses, unless otherwise directed by prescriber. Day 2: One tablet before breakfast, one after lunch, one after dinner, and two at bedtime Day 3: One tablet before breakfast, one after lunch, one after dinner, and one at bedtime Day 4: One tablet before breakfast, one after lunch, and one at bedtime Day 5: One tablet before breakfast and one at bedtime Day 6: One tablet before breakfast Tiotropium Mcnabb* (Spiriva*) 18 Mcg Cap.w.dev 1 PUFF INH DAILY PRN for 30 Days, #1 EA 5 Refills Amlodipine Besylate (Norvasc) 2.5 Mg Tablet 2.5 MG ORAL DAILY for 30 Days, #30 TAB 3 Refills Continued Medications: Ibuprofen (Motrin) 600 Mg Tablet 600 MG ORAL Q8H PRN for For Pain, #20 TAB 0 Refills Methadone Hcl* (Methadone*) 10 Mg Tablet 100 MG ORAL DAILY for pain, #10 TAB 0 Refills Discharge Condition Upon Discharge: stable Discharge Vital Signs Last Vital Signs Date Time Temp Pulse Resp B/P (MAP) Pulse Ox O2 Delivery O2 Flow Rate FiO2 08/14/19 07:54 96.9 94 18 130/67 (88) 97 08/14/19 07:37 Room Air 21 Discharge Disposition Patient was discharged to home Alice Casas M.D. Aug 14, 2019 08:29
[2019-08-14 08:34] VITALS: BP 130/67
[2019-08-14] MEDS: guaiFENesin ER 600mg tab ORAL SCH (08:34)
[2019-08-14] MEDS: Docusate 100mg cap ORAL SCH (08:34)
[2019-08-14] MEDS: Aspirin EC 325mg tab ORAL SCH (08:34)
[2019-08-14] MEDS: Heparin 5000 units/ml inj SUBQ SCH (08:35)
--- NOTE | 2019-08-14 09:58 | Nephrology Progress Note ---
Assessment/Plan Plan #Electrolyte deranagement- #hyponatremia #chest pain #chronic pain syndrome #GERD - DC IVF - cardiology eval - 2d echo - monitor BMP, mag and phos daily - avoid nephrotoxins - daily weights - monitor UOP Subjective ROS Limited/Unobtainable: No Constitutional: Reports: malaise, weakness HEENT: Denies: no symptoms, eye pain, blurred vision, tearing, double vision, ear pain, ear discharge, nose pain, nose congestion, throat pain, throat swelling, mouth pain, mouth swelling, other Genitourinary: Denies: no symptoms, burning, discharge, frequency, flank pain, hematuria, incontinence, pain, urgency, other Neurologic/Psychiatric: Denies: no symptoms, anxiety, depressed, emotional problems, headache, numbness, paresthesia, pre-existing deficit, seizure, tingling, tremors, weakness, other Subjective feeling better chest pain resolved Objective Objective Last 24 Hour Vital Signs Date Time Temp Pulse Resp B/P (MAP) Pulse Ox O2 Delivery O2 Flow Rate FiO2 08/14/19 08:36 Room Air 08/14/19 08:34 94 130/67 08/14/19 08:00 72 08/14/19 07:54 96.9 94 18 130/67 (88) 97 08/14/19 07:37 Room Air 21 08/14/19 04:00 76 08/14/19 04:00 98.3 68 15 143/80 (101) 97 08/14/19 00:00 76 08/14/19 00:00 98.1 70 16 146/76 (99) 98 08/13/19 21:00 Room Air 08/13/19 20:00 93 08/13/19 20:00 97.6 75 15 154/90 (111) 96 08/13/19 19:13 96 20 98 Room Air 21 94 20 92 08/13/19 16:00 97.5 78 20 147/93 (111) 95 08/13/19 15:19 71 08/13/19 12:00 97.7 66 20 150/84 (106) 97 08/13/19 11:27 61 Intake and Output 08/13/19 08/14/19 19:00 07:00 Intake Total 600 ml 480 ml Balance 600 ml 480 ml Intake Oral 600 ml 480 ml # Voids 4 4 Height (Feet): 5 Height (Inches): 4.00 Weight (Pounds): 165 Kel Pacheco M.D. Aug 14, 2019 09:58
--- NOTE | 2019-08-14 10:40 | NUR ---
NURSE NOTES: Pt discharged from 2E to home. Pt in stable condition, ambulated off the floor with RN assistance with belongings in hand. States there is no one for RN to contact regarding discharge. ID band, IV, and tele box removed. Education provided, prescriptions reviewed. Pt belonging list and discharge paperwork signed. Pt. states she will call a cab from [facility] to home.
--- NOTE | 2019-08-14 12:15 | NUR ---
*-* INSURANCE *-* DISCHARGE SUMMARY AND UPDATED CLINICALS HAVE BEEN FAXED TO: [facility] REF# [id number] #[phone] FAX#[phone] REVIEWS/CLINICALS
--- NOTE | 2019-08-14 14:53 | NUR ---
*-*DISCHARGE PLANNED*-* PATIENT HAS BEEN ACCEPTED WITH: [facility] P: [phone], S/W TRINA, WILL SERVICE PATIENT UPON DISCHARGE.
[2019-08-14] MEDS ORDERED: Solu-MEDROL 40mg Inj IVP SCH (15:00)
== END 2019-08-14 10:45 | disposition home or self-care (01) | DRG 203 ==
LOC: EMR 13:00 → 2E 14:34 → EDBEDREQ 15:31 → 2E 16:09
DX: M94.0 Chondrocostal junction syndrome [Tietze] (principal); M62.838 Other muscle spasm; E87.1 Hypo-osmolality and hyponatremia; J44.1 Chronic obstructive pulmonary disease with (acute) exacerbation; R10.9 Unspecified abdominal pain; F11.90 Opioid use, unspecified, uncomplicated
CPT/HCPCS: 36415; 71045; 71275; 80048; 80053; 80061; 80076; 82550; 83036; 83735; 83880; 84100; 84443; 84484; 85025; 85610; 85730; 93005; 93017; 93306; 93350; 94640; 96374; 99285; J2765; J7620; U0002

== ENCOUNTER 2019-09-21 12:39 | Emergency (ER) | payer MEDICAID ==
[~2019-09-21] VITALS: Ht 162.6 cm; Wt 72.6 kg
[~2019-09-21 12:39] MED LIST changes: +MEDROL DOSEPAK4 MG ORAL; +NORVASC2.5 MG ORAL; +SPIRIVA18 MCG INH
[2019-09-21 12:53] VITALS: BP 130/84
--- NOTE | 2019-09-21 12:55 | NUR ---
ED Nurse Note: pt walked in to ED for C/O itchiness to bilateral eye x 5 days. pt reports greenish discharge coming out. currently no discharge seen. pt stated she used some "old eye drops"( unknown) x 5 days ago also. denies use of mascara, contact or eye make up Addendum: 09/21/19 at 1258 by AUDRA ED Nurse Note: pt walked in to ED for C/O itchiness to bilateral eye x 5 days. pt reports greenish discharge coming out. currently no discharge seen. pt stated she used some "old eye drops"( unknown) x 5 days ago also. pt denies use of contact, but does apply eye make up.
[2019-09-21] MEDS ORDERED: POLYTRIM OP SOL10 ML BOTH EYES (13:02)
[2019-09-21] MEDS ORDERED: ZYRTEC10 MG ORAL (13:02)
[2019-09-21] MEDS ORDERED: VOLTAREN100 G1 TP (13:02)
[2019-09-21] MEDS ORDERED: ROBAXIN-750750 MG PO (13:02)
[2019-09-21 13:05] VITALS: BP 121/88
--- NOTE | 2019-09-21 13:05 | NUR ---
ER DISCHARGE NOTE: Patient is cleared to be discharged per ERMD, pt is aox4, on room air, with stable vital signs. pt was given dc and prescription instructions, pt was able to verbalize understanding, pt id band removed without complications. pt is able to ambulate with steady gait. pt took all belongings.
--- NOTE | 2019-09-21 13:08 | Emergency Room Report ---
History of Present Illness General Chief Complaint: Eye Problems Source: Patient Present Illness HPI Patient is a 59-year-old female who presents to the ER complaining of itchy sensation around both of her eyes and green discharge. She denies wearing any contacts. She denies any visual changes. She states that she does wear eye make-up. She denies any trauma. She states that she used some eyedrops from several years ago and thinks that that is what caused her to have the infection. Patient also complains of bilateral lateral neck pain after heavy lifting. She states that the pain keeps her up at night. She denies any upper extremity weakness or paresthesias. She denies any chest pain or shortness of breath. She denies any changes to her bowel or bladder habits. She denies any IV drug use. She denies any back pain. Allergies: Coded Allergies: No Known Allergies (Unverified , 01/03/19) COVID-19 Screening Contact w/high risk pt: No Recent Travel to affected area: No Experienced COVID-19 symptoms?: No COVID-19 Testing performed CYLINDER TESTER: No Patient History Last Menstrual Period: n Reviewed Nursing Documentation: PMH: Agreed; PSxH: Agreed Nursing Documentation-PMH Past Medical History: No History, Except For Hx Cardiac Problems: Yes Hx Hypertension: No Hx Pacemaker: No Hx Asthma: Yes Hx COPD: No Hx Diabetes: No Hx Cancer: No Hx Gastrointestinal Problems: No Hx Dialysis: No Hx Neurological Problems: No Hx Cerebrovascular Accident: No Hx Seizures: No Review of Systems All Other Systems: negative except mentioned in HPI Physical Exam Vital Signs Date Time Temp Pulse Resp B/P (MAP) Pulse Ox O2 Delivery O2 Flow Rate FiO2 09/21/19 12:47 97.9 68 16 132/81 (98) 98 Room Air Sp02 EP Interpretation: reviewed, normal General Appearance: no apparent distress, alert, GCS 15, non-toxic Head: normocephalic, atraumatic Eyes: bilateral eye normal inspection - b/l mild conjunctival erythema, bilateral eye PERRL ENT: hearing grossly normal, normal pharynx, no angioedema, normal voice Neck: full range of motion, supple/symm/no masses, tender lateral - B/L Respiratory: lungs clear, no respiratory distress Cardiovascular #1: regular rate, rhythm Gastrointestinal: non tender, soft Rectal: deferred Musculoskeletal: normal range of motion, no calf tenderness Neurologic: network architect manager III-XII nml as tested, oriented x3 Psychiatric: no suicidal/homicidal ideation Skin: no rash Lymphatic: no adenopathy Medical Decision Making Diagnostic Impression: Primary Impression: Cervical muscle strain Additional Impression: Conjunctivitis ER Course After discussing risks and benefits of further diagnostics, treatment plans, as well as indications for and risks of admission, the patient is agreeable to being discharged home. I have explained that their evaluation and treatment in the emergency department today is an important step towards them achieving better health but that their evaluation today is not intended to replace further evaluation and treatment by a physician in their local clinic. I have explained that while the current findings suggest no immediate life threatening emergency they will require further evaluation and treatment by a physician of their choice in their area. They understand that it will be necessary for them to review the final reports of their ED visit with their clinic physician. We have reviewed indications for return to the Emergency Department. I have explained that additional time may need to pass and/or additional testing as an outpatient may be necessary before a definitive diagnosis can be made. They tell me they are willing to follow up as instructed within the timeframe I recommend. They appear to understand what we discussed. Additionally they understand that if they are unable to be seen by an outpatient physician they are welcome, and in fact should, return to the Emergency Department for a repeat evaluation. The patient is stable at time of discharge. Last Vital Signs Date Time Temp Pulse Resp B/P (MAP) Pulse Ox O2 Delivery O2 Flow Rate FiO2 09/21/19 12:53 97.9 83 16 130/84 98 Room Air Disposition: HOME, SELF-CARE Condition: Stable Scripts Diclofenac Sodium (VOLTAREN) 100 Gm Gel..gram. 100 GM TP BID, #100 GM Prov: Annie Dorman M.D. 09/21/19 Cetirizine Hcl* (ZYRTEC*) 10 Mg Tablet 10 MG ORAL DAILY, #30 TAB 0 Refills Prov: Annie Dorman M.D. 09/21/19 Methocarbamol* (ROBAXIN-750*) 750 Mg Tablet 750 MG PO TID, #21 TAB 0 Refills Prov: Annie Dorman M.D. 09/21/19 Polymyxin/Trimethoprim (Polytrim Eye Drops) 10 Ml Drops 1 DROP BOTH EYES Q4H, #10 ML Prov: Annie Dorman M.D. 09/21/19 Referrals: NON PHYSICIAN (PCP) [facility] Patient Instructions: Bacterial Conjunctivitis, [id number], Cervical Strain and Sprain With Rehab-SportsMed, Allergic Conjunctivitis, [id number] Additional Instructions: The patient was provided with discharge instructions, notified to follow-up with a primary care doctor and or specialist in the next 24-48 hours, and to return to the ED if they have worsening of their symptoms. Please note that this report is being documented using [employer] technology. This can lead to erroneous entry secondary to incorrect interpretation by the dictating instrument. Annie Dorman M.D. Sep 21, 2019 13:08
== END 2019-09-21 13:05 | disposition home or self-care (01) ==
LOC: EMR 12:59
DX: H10.9 Unspecified conjunctivitis (principal); S16.1XXA Strain of muscle, fascia and tendon at neck level, initial encounter; X50.9XXA Other and unspecified overexertion or strenuous movements or postures, initial encounter; Y92.9 Unspecified place or not applicable
CPT/HCPCS: 99282

== ENCOUNTER 2019-10-20 17:46 | Emergency (ER) | payer MEDICAID ==
[~2019-10-20] VITALS: Ht 162.6 cm; Wt 79.4 kg
[~2019-10-20 17:46] MED LIST changes: +POLYTRIM OP SOL10 ML BOTH EYES; +ROBAXIN-750750 MG PO; +VOLTAREN100 G1 TP; +ZYRTEC10 MG ORAL
[2019-10-20 18:22] LABS: APPEARANCE,URINE SLIGHTLY CLOUDY; BILIRUBIN, URINE 1+ (NEGATIVE); GLUCOSE, URINE (UA) NEGATIVE (NEGATIVE); KETONES,URINE 1+ (NEGATIVE); LEUKOCYTE ESTERASE ,URINE 1+ (NEGATIVE); NITRITE,URINE NEGATIVE (NEGATIVE); PH,URINE 5 (4.5-8.0); PROTEIN,URINE 2+ (NEGATIVE); UROBILINOGEN,URINE 1 MG/DL (0.0-1.0)
[2019-10-20 18:23] VITALS: BP 137/86
[2019-10-20 18:28] LABS: COLOR,URINE YELLOW
--- NOTE | 2019-10-20 18:28 | NUR ---
ED Nurse Note: Pt came to ED for c/o paranoia r/t meth use. Pt s alert and orientedx4, ambulatory. Pt has paranoia and thinks people are out to get her. She denies SI/HI. Pt denies hearing voices. Pt states she sees hallucinations.
[2019-10-20 18:33] LABS: BASOPHILS % (AUTO) 2.2 % (0.0-2.0); EOSINOPHILS % (AUTO) 7.2 % (0.0-3.0); HEMATOCRIT 42.3 % (37.0-47.0); HEMOGLOBIN 13.5 G/DL (12.0-16.0); LYMPHOCYTES % (AUTO) 35.4 % (20.0-45.0); MEAN CORPUSCULAR VOLUME 92 FL (80-99); MONOCYTES % (AUTO) 8.4 % (1.0-10.0); NEUTROPHILS % (AUTO) 46.7 % (45.0-75.0); PLATELET COUNT 244 K/UL (150-450); RED BLOOD COUNT 4.62 M/UL (4.20-5.40); RED CELL DISTRIBUTION WIDTH 13.7 % (11.6-14.8); WHITE BLOOD COUNT 7.1 K/UL (4.8-10.8)
[2019-10-20 18:47] LABS: ANION GAP 13 mmol/L (5-15); BLOOD UREA NITROGEN 20 mg/dL (7-18); CALCIUM 10.2 MG/DL (8.5-10.1); CARBON DIOXIDE 26 MMOL/L (21-32); CHLORIDE 106 MMOL/L (98-107); CREATININE 1.2 MG/DL (0.55-1.30); POTASSIUM 3.7 MMOL/L (3.5-5.1); SODIUM 145 MMOL/L (136-145)
--- NOTE | 2019-10-20 18:49 | Diagnostic Imaging Report ---
EXAM: XR Chest, 1 View CLINICAL HISTORY: ALOC TECHNIQUE: Frontal view of the chest. COMPARISON: No relevant prior studies available. FINDINGS: Lungs: Unremarkable. No consolidation. Pleural space: Unremarkable. No pneumothorax. Heart: Unremarkable. No cardiomegaly. Mediastinum: Unremarkable. Bones/joints: Unremarkable. IMPRESSION: Normal chest x-ray.
[2019-10-20 19:00] LABS: ALANINE AMINOTRANSFERASE 25 U/L (12-78); ALBUMIN 4.8 G/DL (3.4-5.0); ALBUMIN/GLOBULIN RATIO 1.1 (1.0-2.7); ALKALINE PHOSPHATASE 66 U/L (46-116); ASPARTATE AMINO TRANSFERASE 21 U/L (15-37); BILIRUBIN,TOTAL 0.7 MG/DL (0.2-1.0)
--- NOTE | 2019-10-20 19:05 | NUR ---
ED Nurse Note: Report received from KOKO COOLEY. Patient awake and alert on bed
[2019-10-20 20:30] VITALS: BP 128/89
[2019-10-20 22:00] VITALS: BP 124/82
--- NOTE | 2019-10-21 00:09 | Emergency Room Report ---
History of Present Illness General Chief Complaint: Behavioral Complaint Source: Patient Present Illness HPI The patient presents requesting detox from methadone. She is taking 100 mg a day. She does not want to return to the methadone clinic. She is concerned that "people are out to get her". She does not feel suicidal homicidal. She denies prior psychiatric history. This concern about others has gradually developed over the last week. She denies doing any drugs. She denies abdominal pain, nausea, vomiting, diarrhea, poor caloric erection, headaches or dizziness. She has been eating but has not been sleeping well. She denies prior psychiatric illness or taking psychiatric medication in the past. No fevers, chills, sore throat, palpitations, dysuria, shortness of breath, joint pain, rashes, visual changes, dizziness, headache. She does not believe she has been exposed to COVID-1 positive contacts however she is uncertain. She has been wearing a mask and social distancing. Allergies: Coded Allergies: No Known Allergies (Unverified , 01/03/19) COVID-19 Screening Contact w/high risk pt: No Recent Travel to affected area: No Experienced COVID-19 symptoms?: No COVID-19 Testing performed STRIKE PLANNING APPLICATIONS: No Patient History Past Medical History: see triage record Social History: Denies: smoking, drug use - Prior Social History Narrative and living by herself Last Menstrual Period: na Now: No Reviewed Nursing Documentation: PMH: Agreed; PSxH: Agreed Nursing Documentation-PMH Past Medical History: No History, Except For Hx Cardiac Problems: No Hx Hypertension: Yes Hx Pacemaker: No Hx Asthma: Yes Hx COPD: No Hx Diabetes: No Hx Cancer: No Hx Gastrointestinal Problems: No Hx Dialysis: No Hx Neurological Problems: No Hx Cerebrovascular Accident: No Hx Seizures: No Review of Systems All Other Systems: negative except mentioned in HPI Physical Exam Vital Signs Date Time Temp Pulse Resp B/P (MAP) Pulse Ox O2 Delivery O2 Flow Rate FiO2 10/20/19 17:50 98.1 79 18 132/87 (102) 99 Room Air 10/20/19 18:23 97 Sp02 EP Interpretation: reviewed, normal General Appearance: well appearing, no apparent distress, GCS 15 Head: normocephalic, atraumatic Eyes: bilateral eye normal inspection, bilateral eye PERRL, bilateral eye EOMI ENT: moist mucus membranes Neck: supple Respiratory: lungs clear, normal breath sounds Cardiovascular #1: regular rate, rhythm Cardiovascular #2: 2+ radial (R) Gastrointestinal: normal inspection, normal bowel sounds, non tender, no mass, non-distended Musculoskeletal: back normal, normal range of motion, gait/station normal Neurologic: alert, motor strength/tone normal, assistant media buyer III-XII nml as tested, DTRs symmetric, oriented x3, sensory intact, cerebellar normal, speech normal Psychiatric: no suicidal/homicidal ideation, other - Some paranoid ideation Skin: no rash, warm/dry Medical Decision Making Diagnostic Impression: Primary Impression: UTI (urinary tract infection) Qualified Codes: N30.00 - Acute cystitis without hematuria Additional Impression: Methadone use ER Course Patient presents with desire to detox from methadone and fear others are out to get her. Differential includes delirium, exacerbation of underlying psychiatric illness, adverse reaction to methadone treatment, other drug ingestion, electrolyte imbalance, occult infection amongst others. Patient evaluated with EKG, chest x-ray and labs. Patient placed on a log check scaler. Serial exams indicated. Patient not gravely disabled or reporting intent to harm self or others. EKG = tachycardia. Chest x-ray normal. Labs unremarkable except for slightly elevated BUN and creatinine and pyuria. Discussed urinary tract infection with patient and discussed prescription for Macrobid. Vital signs preclude use of clonidine at this time. I also discussed that we did not have access to detox program however there were several that are available throughout the [place]. Patient understands and is not against following up at a possible detox center. Patient is adamant that she will not return to the methadone clinic that she has been going to. Patient advised also to follow-up with her own private physician. No medical emergency at this time. Patient stable for outpatient observation and treatment. Laboratory Tests Test 10/20/19 18:10 White Blood Count 7.1 K/UL (4.8-10.8) Red Blood Count 4.62 M/UL (4.20-5.40) Hemoglobin 13.5 G/DL (12.0-16.0) Hematocrit 42.3 % (37.0-47.0) Mean Corpuscular Volume 92 FL (80-99) Mean Corpuscular Hemoglobin 29.3 PG (27.0-31.0) Mean Corpuscular Hemoglobin Concent 32.0 G/DL (32.0-36.0) Red Cell Distribution Width 13.7 % (11.6-14.8) Platelet Count 244 K/UL (150-450) Mean Platelet Volume 7.9 FL (6.5-10.1) Neutrophils (%) (Auto) 46.7 % (45.0-75.0) Lymphocytes (%) (Auto) 35.4 % (20.0-45.0) Monocytes (%) (Auto) 8.4 % (1.0-10.0) Eosinophils (%) (Auto) 7.2 % (0.0-3.0) H Basophils (%) (Auto) 2.2 % (0.0-2.0) H Urine Color Yellow Urine Appearance Slightly cloudy Urine pH 5 (4.5-8.0) Urine Specific [place] 1.030 (1.005-1.035) Urine Protein 2+ (NEGATIVE) H Urine Glucose (UA) Negative (NEGATIVE) Urine Ketones 1+ (NEGATIVE) H Urine Blood Negative (NEGATIVE) Urine Nitrite Negative (NEGATIVE) Urine Bilirubin 1+ (NEGATIVE) H Urine Ictotest Negative (NEGATIVE) Urine Urobilinogen 1 MG/DL (0.0-1.0) H Urine Leukocyte Esterase 1+ (NEGATIVE) H Urine RBC 0-2 /HPF (0 - 2) Urine WBC 5-10 /HPF (0 - 2) H Urine Squamous Epithelial Cells Many /LPF (NONE/OCC) H Urine Amorphous Sediment Moderate /LPF (NONE) H Urine Bacteria Moderate /HPF (NONE) H Sodium Level 145 MMOL/L (136-145) Potassium Level 3.7 MMOL/L (3.5-5.1) Chloride Level 106 MMOL/L (98-107) Carbon Dioxide Level 26 MMOL/L (21-32) Anion Gap 13 mmol/L (5-15) Blood Urea Nitrogen 20 mg/dL (7-18) H Creatinine 1.2 MG/DL (0.55-1.30) Estimated Glomerular Filtration Rate 55.8 mL/min (>60) Glucose Level 83 MG/DL (74-106) Calcium Level 10.2 MG/DL (8.5-10.1) H Total Bilirubin 0.7 MG/DL (0.2-1.0) Aspartate Amino Transferase (AST) 21 U/L (15-37) Alanine Aminotransferase (ALT) 25 U/L (12-78) Alkaline Phosphatase 66 U/L (46-116) Troponin I 0.000 ng/mL (0.000-0.056) Total Protein 9.1 G/DL (6.4-8.2) H Albumin 4.8 G/DL (3.4-5.0) Globulin 4.3 g/dL Albumin/Globulin Ratio 1.1 (1.0-2.7) Thyroid Stimulating Hormone (TSH) 1.338 uiU/mL (0.358-3.740) Salicylates Level 2.0 ug/mL (2.8-20) L Urine Opiates Screen Negative (NEGATIVE) Acetaminophen Level < 2 MCG/ML (10-30) L Urine Barbiturates Screen Negative (NEGATIVE) Phencyclidine (PCP) Screen Negative (NEGATIVE) Urine Amphetamines Screen Negative (NEGATIVE) Urine Benzodiazepines Screen Negative (NEGATIVE) Urine Cocaine Screen Negative (NEGATIVE) Urine Marijuana (THC) Screen Negative (NEGATIVE) Serum Alcohol < 3 mg/dL EKG Diagnostic Results Rate: bradycardiac Rhythm: NSR ST Segments: no acute changes Rhythm Strip Diag. Results EP Interpretation: yes Rhythm: no PVC's, no ectopy, other - Rate of 58 Chest X-Ray Diagnostic Results Chest X-Ray Diagnostic Results : Chest X-Ray Ordered: Yes # of Views/Limited/Complete: 1 View Indication: Other EP Interpretation: Yes Interpretation: no consolidation, no effusion, no pneumothorax Impression: No acute disease Electronically Signed by: Electronically signed by Marck Leung MD Last Vital Signs Date Time Temp Pulse Resp B/P (MAP) Pulse Ox O2 Delivery O2 Flow Rate FiO2 10/21/19 02:02 98.5 85 18 131/78 98 Room Air 97 Status: improved Disposition: HOME, SELF-CARE Condition: Improved Scripts Nitrofurantoin Monohyd/M-Cryst* (MACROBID 100 MG*) 100 Mg Capsule 100 MG ORAL EVERY 12 HOURS, #14 CAP Prov: Marck Leung MD 10/21/19 Acetaminophen (Tylenol) 325 Mg Tablet 650 MG ORAL Q6H PRN for Prn Pain/Headache/Temp > 101, #20 TAB 0 Refills Prov: Marck Leung MD 10/21/19 Hydroxyzine Pamoate (VISTARIL) 25 Mg Capsule 25 MG PO Q8HR PRN for anxiety or insomnia, #10 CAP Prov: Marck Leung MD 10/21/19 Referrals: HEALTH CARE MD,REFERRING (PCP) Marck Leung MD Oct 21, 2019 00:09
[2019-10-21] MEDS ORDERED: TYLENOL325 MG ORAL (00:14)
[2019-10-21] MEDS ORDERED: VISTARIL25 M1 PO (00:14)
[2019-10-21] MEDS ORDERED: NITROFURANTOIN100 M2 ORAL (00:14)
[2019-10-21 00:25] VITALS: BP 141/87
--- NOTE | 2019-10-21 01:50 | NUR ---
ER DISCHARGE NOTE: Patient is cleared to be discharged per ERMD, pt is aox4, on room air, with stable vital signs. pt was given dc and prescription instructions, pt was able to verbalize understanding, pt id band and iv site removed without complications. pt is able to ambulate with steady gait. pt took all belongings.
[2019-10-21 02:02] VITALS: BP 131/78
--- NOTE | 2019-10-22 01:38 | Cardiology Report ---
APPROVED REPORT EKG Measurement Heart [id number] <Conclusion> Sinus rhythm with sinus arrhythmia with short [place] Inferior infarct, age undetermined Anterolateral infarct, age undetermined Abnormal ECG
== END 2019-10-21 02:04 | disposition home or self-care (01) ==
LOC: EMR 18:28
DX: N30.00 Acute cystitis without hematuria (principal); F11.90 Opioid use, unspecified, uncomplicated; I10 Essential (primary) hypertension
CPT/HCPCS: 36415; 71045; 80053; 80307; 81003; 82962; 84443; 84484; 85025; 87086; 93005; 96360; 96361; G0480; G0481; J7030; Z7502; 99284